=== PATIENT | female | born 1950 | race Caucasian/White ===

== ENCOUNTER 2018-09-14 15:51 | Observation (INO) | payer MEDICARE, BC, SELFPAY ==
[2018-09-14] VITALS (21 sets, daily range): BP systolic 108–158; BP diastolic 55–105; PULSE 60–122; RESP 9–26; TEMP 36.4–37.1; O2SAT 93–100; BMI 19.4
--- NOTE | 2018-09-14 | DI.RAD.S_ITS ---
PROCEDURE: XR HIP W PEL IF DONE LT 2V INDICATIONS: CLOSED REDUCTION TECHNIQUE: 3 AP view images of the hip were acquired. COMPARISON: [facility], CR, XR HIP W PEL IF DONE LT 2V, 09/14/2018, 15:58. FINDINGS: Intraoperative fluoroscopy documents the reduction of the previously noted left total hip arthroplasty dislocation, with the left femoral head hardware component now appearing well seated within the left acetabular hardware component. IMPRESSION: Intraoperative fluoroscopy documents the reduction of the previously noted left total hip arthroplasty dislocation, with the left femoral head hardware component now appearing well seated within the left acetabular hardware component. Please see procedural note for further details. Dictated by: Zafar Menendez M.D. on 09/14/2018 at 19:47 Approved by: Zafar Menendez M.D. on 09/14/2018 at 19:49
--- NOTE | 2018-09-14 15:53 | ED.LOWEXIN ---
HPI - Extremity Injury (Lower) General Chief Complaint: Extremity Injury, Lower Stated Complaint: Hip dislocation Time Seen by Provider: 09/14/18 15:53 Source: patient and EMS Mode of arrival: EMS Limitations: no limitations History of Present Illness HPI Narrative: A 68-year-old female with known bilateral total hip arthroplasty done greater than 20 years ago. His here for evaluation of presumed left hip dislocation. Patient states that it occurred this morning. She was trying to get out of her car when she twisted wrong. She states she has dislocated the hip in the past. Patient is from [facility]. There was a small attempt to reduce the hip at that time but was unsuccessful. Prior to arrival patient has received 100 mcg of fentanyl, Versed, 2 mg Dilaudid, 1 mg Ativan. Patient has been using a fentanyl patch for the past 40 years for lower back pain. Related Data Allergies Allergy/AdvReac Type Severity Reaction Status Date / Time No Known Drug Allergies Allergy Verified 09/14/18 16:21 Review of Systems Constitutional Denies fever(s) Musculoskeletal Denies myalgias, Reports deformity (Left hip), Reports arthralgias (Left hip), Reports limited range of motion (Left hip), Reports numbness (The outside of left leg) and Reports radiating pain into limb (Left lower leg) Integumentary/Breasts Denies lesions and Denies rash Neurologic Reports numbness (The outside of left leg) Hematologic/Lymphatic Denies easy bleeding and Denies easy bruising PFSH Medical History Chronic low back pain (Acute) Surgical History History of bilateral total hip arthroplasty (Acute) Social History Smoking Status: Never smoker Exam Initial Vital Signs Initial Vital Signs: Vital Signs Temperature 98.3 F 09/14/18 16:03 Pulse Rate 95 H 09/14/18 16:03 Respiratory Rate 20 09/14/18 16:03 Blood Pressure 146/89 H 09/14/18 16:03 Pulse Oximetry 97 09/14/18 16:03 Const General: cooperative, well developed, well groomed and No acute distress Orientation: alert, awake and oriented x3 HENMT Head: normal to inspection and normocephalic Resp Effort & Inspection: normal respiratory effort Auscultation: clear to auscultation bilaterally Cardio Rate: regular rate Rhythm: regular rhythm GI Inspection: non-distended Palpation: soft Skin Lesions: no lesions Rashes: no rashes Neuro Other: Sensation intact to light touch left lower extremity Extrem General: capillary refill normal Other: Limited range of motion left hip secondary to pain. Deformity of left hip Psych Appearance: grossly normal and well kempt Procedures Orthopedic Joint Reduction Joint #1: Time Out Performed: Yes Side: left Joint Reduction Location: hip Analgesia: procedural sedation Technique used: direct manipulation Post-reduction neuro exam: no change Post-reduction vascular: no change Post Reduction X-Ray Obtained: No Post Reduction X-Ray Results: not reduced Splint Applied: No Patient Tolerated Procedure: Well Procedural Sedation Patient Age: Patient is 5yrs or older Indication: fracture/dislocation reduction ASA Class: II Mallampati Airway Classification: Class I Time of Last PO Intake: 14:00 Preparation: compliance monitor applied, pulse oximeter, capnometry used and supplemental O2 applied IV Etomidate dose (mg): 20 ED Sedation Level: Moderate (Concious) Patient Tolerated Procedure: Well and No complications Complications: none Course Orders Ordered: ED Orders 09/14/18 15:54 XR hip w pel if done LT 2V Stat Discontinued Medications Etomidate (Amidate) 10 mg IV NOW ONE Stop: 09/14/18 17:28 Etomidate (Amidate) 10 mg IV NOW ONE Stop: 09/14/18 16:11 Last Admin: 09/14/18 16:30 Dose: 10 mg Hydromorphone HCl (Dilaudid) 1 mg IV NOW ONE Stop: 09/14/18 17:01 Last Admin: 09/14/18 17:10 Dose: 1 mg Famotidine (Pepcid) 20 mg in 50 mls @ 200 mls/hr IV NOW ONE Stop: 09/14/18 17:14 Last Admin: 09/14/18 17:10 Dose: 200 mls/hr Metoclopramide HCl (Reglan) 10 mg IV NOW ONE Stop: 09/14/18 17:01 Last Admin: 09/14/18 17:10 Dose: 10 mg Vital Signs - 8 hr 09/14/18 16:03 09/14/18 16:15 09/14/18 16:25 Temperature 98.3 F Pulse Rate 98 H 96 H 96 H Pulse Rate [Left Dorsalis Pedis] 95 H Respiratory Rate 20 17 16 Blood Pressure 146/89 H Blood Pressure [Right Arm] 136/76 136/64 Pulse Oximetry 97 97 97 09/14/18 16:30 09/14/18 16:35 09/14/18 16:40 Temperature Pulse Rate 122 H 100 H 99 H Pulse Rate [Left Dorsalis Pedis] Respiratory Rate 26 H 23 24 Blood Pressure Blood Pressure [Right Arm] 136/76 133/105 H Pulse Oximetry 96 93 95 09/14/18 16:45 09/14/18 16:50 Temperature Pulse Rate 90 89 Pulse Rate [Left Dorsalis Pedis] Respiratory Rate 19 19 Blood Pressure Blood Pressure [Right Arm] 158/57 H 142/87 H Pulse Oximetry 95 93 MDM - Extremity Injury (Lower) Imaging Data Left hip x-ray: My impression: Dislocation of left hip superior No fractures Radiologist's impression: PROCEDURE: XR HIP W PEL IF DONE LT 2V INDICATIONS: Probable dislocation TECHNIQUE: 2 views of the hip were acquired. COMPARISON: None. FINDINGS: Suboptimal exam due to imaging artifact. There are bilateral total hip arthroplasties. There is dislocation of the left total hip arthroplasty with the left femoral head arthroplasty component located anterosuperior to the left acetabular arthroplasty component. IMPRESSION: Dislocation of the left total hip arthroplasty with the left femoral head component located superior and anterior to the left acetabular component. Dictated by: Zafar Menendez MD. on 09/14/2018 at 16:51 Approved by: Zafar Menendez M.D. on 09/14/2018 at 16:52 [facility] Narrative Medical decision making narrative: No fractures noted on the x-ray. After obtaining consent patient was sedated with 10 mg of etomidate. Unable to reduce hip. A 2nd attempt was made with another 10 mg of etomidate again unsuccessful reduction. Patient tolerated the sedation well. I discussed the case with Dr. Lehman with Orthopedics who will take the patient to the operating room for closed reduction. Informed patient that we were unable to reduce the hip here in the emergency department and that she would will be sent to the operating room. Patient expressed understanding and agreement. Discharge Plan Departure Patient Disposition: Admitted as Observation Clinical Impression: Closed dislocation of left hip Discharge Date/Time: 09/14/18 17:33 Admit Date/Time: 09/14/18 17:09 Admit Provider: Carl Lehman
[2018-09-14] MEDS: ETOMIDATE 2 MG/ML VIAL 10 MG IV ×2 (16:25→16:30)
[2018-09-14] MEDS: METOCLOPRAMIDE 10 MG/2 ML INJ IV (17:10)
[2018-09-14] MEDS: FAMOTIDINE 20 MG/50 ML PIGGYBACK 200 MG IV (17:10)
[2018-09-14] MEDS: HYDROMORPHONE 1 MG INJ IV (17:10)
--- NOTE | 2018-09-14 17:45 | PM.CN ---
History of Present Illness Date Patient Seen: 09/14/18 Time Patient Seen: 17:45 Chief complaint: Hip dislocation Reason for consult: Left total hip replacement dislocation Requesting provider: Conner Sharpe Narrative: Ms. Mooney is a 68 yo F with acute onset of pain after bending and twisting her left hip. She had hx of KRUNAL more than 10 years ago. She says she had hx of dislocation and spontanenous reduction many years ago. She does not have recent hx of dislocation. She is unable to walk after the injury earlier today. She was transferred to ED. Attempted reduction was no successful by ED physician under sedation. Orthopedic service was consulted. [facility] Medical History Chronic low back pain (Acute) Surgical History History of bilateral total hip arthroplasty (Acute) Social History household members: family Smoking Status: Never smoker Meds Allergies Allergy/AdvReac Type Severity Reaction Status Date / Time No Known Drug Allergies Allergy Verified 09/14/18 16:21 Review of Systems Review of Systems All systems reviewed & are unremarkable except as noted in HPI and below Exam Vital Signs (past 8 hours): - 09/14/18 16:03 09/14/18 16:15 09/14/18 16:25 Temperature 98.3 F Pulse Rate 98 H 96 H 96 H Pulse Rate [Left Dorsalis Pedis] 95 H Respiratory Rate 20 17 16 Blood Pressure 146/89 H Blood Pressure [Right Arm] 136/76 136/64 Pulse Oximetry 97 97 97 09/14/18 16:30 09/14/18 16:35 09/14/18 16:40 Temperature Pulse Rate 122 H 100 H 99 H Pulse Rate [Left Dorsalis Pedis] Respiratory Rate 26 H 23 24 Blood Pressure Blood Pressure [Right Arm] 136/76 133/105 H Pulse Oximetry 96 93 95 09/14/18 16:45 09/14/18 16:50 09/14/18 17:43 Temperature Pulse Rate 90 89 84 Pulse Rate [Left Dorsalis Pedis] Respiratory Rate 19 19 21 Blood Pressure Blood Pressure [Right Arm] 158/57 H 142/87 H Pulse Oximetry 95 93 Oxygen Delivery Method Nasal Cannula Oxygen Flow Rate 2 Extrem Other: Skin Intact, left hp shortened and internally rotated. Well perfused and neurovascularly intact Assessment & Plan Plan: Assessment/Plan Narrative: Left total hip arthoplasty dislocation. Unable to be reduced in the ED under sedation by the emergency physician. Risks and benefits of the procedure was discussed. Patient is aware in case the hip is not able to be relocated by closed mean, she will be admitted and she will be referred to our hip specialist to manage her care. She is consented for close reduction under anesthesia.
[2018-09-14] MEDS: LACTATED RINGERS 1,000 ML 42 ML IV (17:48)
--- NOTE | 2018-09-14 17:56 | PM.OP.1 ---
Operative Date/Time/Diagnoses Date of procedure: 09/14/18 Time of procedure: 17:59 Pre-op diagnosis: 1. left total hip arthroplasty dislocation Post-op diagnosis: same Procedure & Clinicians Procedure: Left hip dislocation reduction under anesthesia Same procedure as scheduled: Yes Indications: Ms. Mooney is a 68 yo F with episode of acute onset pain and inablity to walk when she twisted and flexed her left hip. She was transferred to ED. Imaging showed a KRUNAL dislocation. Attempted reduction was done by ED physician. It was not successful. Orthopedic service was consulted and patient is taken to the OR for close reduction under anesthesia after informed consent was obtained. Surgeon: Carl Lehman Click Yes if Unassisted: Yes Anesthesia Type: General Operative Notes Blood products transfused: none Procedure in detail: Patient was identified in the preoperative area. Informed consent was obtained and placed in the chart. The affected leg was marked. Patient was taken to the operative room. General anesthesia was given to the patient patient was transferred to the operating table under sedation. Patient's affected hip was flexed internally rotated and was then put in traction. While in traction the hip was slowly extended external rotated. A clunk was felt during this maneuver. X-ray was used to confirm the hip was reduced in the desired position. Patient's left hip dislocation was reduced without difficulty. Patient tolerated the procedure well I was placed into abduction pillow. Patient was then transferred to recovery room in stable condition. Complications: none Condition: stable Plan for aftercare: Admit for over night observation. [place] She will be discharge in am.
--- NOTE | 2018-09-14 18:01 | P.OP_ITS ---
Operative Date/Time/Diagnoses Date of procedure: 09/14/18 Time of procedure: 17:59 Pre-op diagnosis: 1. left total hip arthroplasty dislocation Post-op diagnosis: same Procedure & Clinicians Procedure: Left hip dislocation reduction under anesthesia Same procedure as scheduled: Yes Indications: Ms. Mooney is a 68 yo F with episode of acute onset pain and inablity to walk when she twisted and flexed her left hip. She was transferred to ED. Imaging showed a KRUNAL dislocation. Attempted reduction was done by ED physician. It was not successful. Orthopedic service was consulted and patient is taken to the OR for close reduction under anesthesia after informed consent was obtained. Surgeon: Carl Lehman Click Yes if Unassisted: Yes Anesthesia Type: General Operative Notes Blood products transfused: none Procedure in detail: Patient was identified in the preoperative area. Informed consent was obtained and placed in the chart. The affected leg was marked. Patient was taken to the operative room. General anesthesia was given to the patient patient was transferred to the operating table under sedation. Patient' s affected hip was flexed internally rotated and was then put in traction. While in traction the hip was slowly extended external rotated. A clunk was felt during this maneuver. X-ray was used to confirm the hip was reduced in the desired position. Patient's left hip dislocation was reduced without difficulty. Patient tolerated the procedure well I was placed into abduction pillow. Patient was then transferred to recovery room in stable condition. Complications: none Condition: stable Plan for aftercare: Admit for over night observation. Patient lives alone in her house [place] [address]. She will be discharge in am.
--- NOTE | 2018-09-14 18:06 | SUR.OPER ---
Supine on padded OR bed, head on pillow, arms across chest legs uncrossed, safety belt at thigh,
[2018-09-14] MEDS: LACTATED RINGERS 1,000 ML 125 ML IV (20:16)
[2018-09-14] MEDS: ACETAMINOPHEN 325 MG TABLET 650 MG PO (20:53)
[2018-09-14] MEDS: HYDROCODONE/ACET 5/325 TABLET 1 TAB PO (21:23)
[2018-09-14] MEDS: HYDROMORPHONE 2 MG INJ IV (22:47)
[2018-09-15] MEDS: hydrOXYzine pamoate 25 MG CAPSULE PO ×2 (00:15→20:03)
[2018-09-15] MEDS: HYDROMORPHONE 2 MG INJ IV ×2 (00:19→04:28)
[2018-09-15] MEDS: HYDROCODONE/ACET 5/325 TABLET 1 TAB PO ×4 (02:12→20:02)
[2018-09-15 03:20] VITALS: BP 119/66; PULSE 82; RESP 15; TEMP 37; O2SAT 98
[2018-09-15] MEDS: SODIUM CHLORIDE 0.9% 1,000 ML 1000 ML IV (03:49)
--- NOTE | 2018-09-15 05:29 | PC.NURSE ---
Addendum entered by Aisha Chan R.N. 09/15/18 05:31: q 2 days and the one she is wearing is . She states she has been in pain all shift and is concerned she may go into opiate withdrawal. She has been given 1 [place] po q 4 x 2, Dilaudid 0.2 mg IVP x 2 and Visteril 25 mg po with no improvement. LS clear, S1, S2, voiding well and drinking water and decaf coffee. Denies nausea. Current pain is 8/10. Original Note: Pt is A and O x 4, VSS. Pt states she has been on opiates for 40 years for chronic back pain. She states she applies a 100 mcg Fentanyl
--- NOTE | 2018-09-15 07:42 | P.PN_ITS ---
Subjective Date Patient Seen: 09/15/18 Time Patient Seen: 07:42 Interval history: POD #1 status post Left hip dislocation reduction under anesthesia by Dr. Lehman on 09/14/18. Patient is lying in bed in no acute distress. She reports that her pain is manageable at this time. Patient has been using 100mcg fentanyl patch for 40 years for lower back pain. She reports switching out her patch every 2 days; her patch was last changed 4 days ago. She reports that she would like to have a new fentanyl patch to avoid opiate withdrawal and low back pain. She reports that she [place] alone in [place] however she has friends and family that could come by to assist her upon discharge. Patient has not seen PT. Patient denies any SOB, chest pain, fever, nausea, vomiting or chills. Exam Vital Signs (past 8 hours): - 09/14/18 23:45 09/15/18 03:20 Temperature 97.5 F L 98.6 F Pulse Rate 60 82 Respiratory Rate 15 15 Blood Pressure 119/66 119/66 Pulse Oximetry 96 98 Oxygen Delivery Method Room Air Oxygen Flow Rate 2 Narrative Exam Narrative: Patient is lying in bed in no acute distress. AOx3. Abduction pillow noted between LE. Radial and dorsalis pedis pulses 2+ and symmetric bilaterally. Sensation to light touch intact in LE bilaterally. Adequate muscle strength in dorsiflexion, plantarflexion and [employer] bilaterally. Fentanyl patch noted on R LE. Calfs are soft, non tender and compressible bilaterally. Assessment & Plan Post-op Postoperative Procedures Operation Date: 09/14/18 17:35 Actual Procedures Side Surgeon p Closed Reduction Dislocated Hip Carl Lehman MD Postoperative day: 1 Postoperative status: doing well Postoperative plan: routine post-op care Postoperative plan narrative: Start mobilizing, ambulating and sitting in chair with PT. 100mcg Fentanyl patch ordered for chronic lower back pain. Likely to be discharged home today once cleared by PT. Quality VTE Deep Vein Thrombosis/Pulmonary Embolism Present on Admission: No
[2018-09-15 07:49] VITALS: BP 121/55; PULSE 56; RESP 14; TEMP 36.6; O2SAT 97
--- NOTE | 2018-09-15 08:48 | PT.IIE ---
Addendum entered and electronically signed by Michelle Chaudhry PT 09/15/18 15:34: I certify I directly supervised and guided this session. Edwin Chaudhry DPT Original Note: Surgery Performed Operation Date: 09/14/18 17:35 Actual Procedures p Closed Reduction Dislocated Hip - Carl Lehman MD Surgical History (Last Reviewed 09/14/18 @ 17:48 by Carl Lehman MD) History of bilateral total hip arthroplasty (Acute) Medical History (Last Reviewed 09/14/18 @ 17:48 by Carl Lehman MD) Chronic low back pain (Acute) Physical Therapy Inpatient Evaluation/Re-Eval M1 PT/OT-IP Prior Functional Status Start: 09/15/18 10:27 Freq: NEEDED Status: Active Protocol: Document 09/15/18 08:48 (Rec: 09/15/18 11:37 [email or web address]) Medical Review Prior Functional Status Medical History Reviewed Yes Communication No deficits noted Mobility and Gait Previously independent with all mobilities using no AD. Prior Functional Level (Other details) No falls reported. Social History Household Members none Living Arrangements House Number of Floors (Floors) One Floor Number of Stairs To Enter/Railing? 2 stairs, L rail ascending Home Environment Standard Height Toilet Walk in Shower Home Equipment Hand Held Shower Additional Social History Comment Pt's brother avaliable to assist at d/c. She typically cares for several animals on a large property independently. M2 PT-IP Current Condition Start: 09/15/18 10:27 Freq: NEEDED Status: Active Protocol: Document 09/15/18 08:48 (Rec: 09/15/18 11:37 [email or web address]) Physical Therapy Current Condition Current Condition Evaluation Date 09/15/18 Treatment Diagnosis L Hip dislocation c closed reduction; difficulty walking Onset Date 09/14/18 Precautions Other Precautions No formal precautions per physician orders. PT advised pt to avoid extreme ranges of flexion, adduction and internal rotation (gave pt posterior hip precaution handouts). M3 PT-IP Subjective Start: 09/15/18 10:27 Freq: NEEDED Status: Active Protocol: Document 09/15/18 08:48 (Rec: 09/15/18 11:37 [email or web address]) Subjective Physical Therapy Visit Type Type Initial Evaluation Visit Start Time 08:48 Visit Stop Time 09:28 Total Visit Minutes 40 Number of YOUTUBER Visits 0 Physical Therapy Visit Comments Patient Comments Pt agreeable to mobilize with PT. Patient Goals Pt plans to return home upon d /c independently. Therapy Pain Assessment Pain When Pain Assessed During Mobility Pain Present Pain Present Pain Reported Location Left Hip Scale Used 2/10 at rest. 3/10 after mobility M4 PT-IP Mobility and Gait Start: 09/15/18 10:27 Freq: NEEDED Status: Active Protocol: Document 09/15/18 08:48 (Rec: 09/15/18 11:37 [email or web address]) PT-Bed Mobility Assessment Supine to Sit Supine to Sit Independent Sit to Supine Sit to Supine Independent Scooting Scooting to Edge of Bed Independent PT-Transfer Assessment Sit to and From Stand Sit to and from Stand Contact Guard Assistance Minimal Assistance Maximum Assistance 1 Person Assistance Use of Upper Extremities Equipment Transfer Assistive Device None Gait Belt Front Wheeled Walker Transfers Transfer Destination Bed Transfer Technique Pt ambulated to/from bed Transfer Ability Level of Assist Standby Assistance Comments Mobility Comments Resting BP 133/66 HR 59. Pt completes sit > stand with fww SBA. Stand > sit is SBA and no AD. Gait Assessment Gait Gait Assistance Required: Contact Guard Assist Distance (Feet) 200 Able to Maintain Weight Bearing Status Yes During Gait Assistive Devices Assistive Device None Gait Belt Front Wheeled Walker Orthotic/Prosthetic Devices or Brace: No Gait Deviations General Gait Pattern Narrow Based Gait Wide Based Gait Factors Limiting Gait Function Factors Limiting Gait Function Decreased Activity Tolerance Decreased Strength Incoordination Limited Range of Motion Pain Poor Balance Poor Safety Awareness Comments Gait Comments Pt ambulated 10 ft in room with fww SBA. Additional 190 ft completed to/from stairs with no AD and CGA for balance /steadying. Pt demonstrates variability in step width and several minor LOB that she is able to recover with CGA. Increased sway/LOB noted when asked to turn her head to scan environment with forward ambulation. Stair Climbing Assessment Evaluation Level of Assist On Stairs Contact Guard Assistance Devices Stair Climbing Assistive Devices None Left Railing Technique/Endurance Stair Climbing Direction Ascend and Descend Stair Climbing Technique Step Over Step Number of Steps Climbed 3 Query Text: Stair Climbing Set # Repetitions (reps) 1 Comments Stair Climbing Comments Pt up/down 3 steps with L rail ascending, CGA and no LOB. Instructed to lead up stairs with RLE and lead down stairs with LLE; She demonstrated this with min cues. PT-Balance Assessment Sitting Balance and Reactions Static Sitting Balance Ability Good Dynamic Sitting Balance Ability Good Standing Balance and Reactions Static Standing Balance Ability Good Dynamic Standing Balance Ability Fair Device Used no AD Functional Assessments Functional Tests Dynamic Gait Index Other Functional Tests Performed Comment: DGI items #6, #3, #5 (over obstacle, horizontal head turns, pivot turn) increase pt sway/unsteadiness most significantly M5 PT-IP Objective Assessments Start: 09/15/18 10:27 Freq: NEEDED Status: Active Protocol: Document 09/15/18 08:48 (Rec: 09/15/18 11:37 [email or web address]) Orientation Orientation/Cognition Level of Alertness Alert Orientation Name Age Birthday Month Date Year Day of Week Place Situation Language Function Ability No Deficits Noted Safety Awareness Decreased Safety Awareness Memory Description No Deficits Noted Gross Range of Motion Lower Extremity ROM Assessment Left Impaired Impairments LLE not tested. PT advised against extreme ranges of motion. Pt notes being hypermobile and demonstrates with hypermobile thumbs bilaterally. Strength Comments Strength Comments BLE 4/5 grossly M6 PT-IP Treatment Start: 09/15/18 10:27 Freq: NEEDED Status: Active Protocol: Document 09/15/18 08:48 (Rec: 09/15/18 11:37 [email or web address]) Physical Therapy Treatment Education Education Provided Precautions Safety Other Treatments Other Treatment Performed Pt declined performing, requesting to rest. Demonstrated standing hip hike at counter for balance as well as hip strengthening. M7 PT-IP Assessment and Plan Start: 09/15/18 10:27 Freq: NEEDED Status: Active Protocol: Document 09/15/18 08:48 (Rec: 09/15/18 11:37 [email or web address]) PT Summary Assessment and Plan Potential Rehabilitation Potential Good Status of Condition at Evaluation Stable Summary Impairments Pain ROM Strength Balance Bed Mobility Transfers Gait Activity Tolerance Progress Towards Goals Progressing Toward Goals Assessment Summary Pt s/p L hip dislocation closed reduction with difficulty walking and impaired balance. She ambulated 200 ft total today CGA, primarily with no AD as well as completed up/down 3 steps with L rail CGA. She however demonstrates high risk for falls scoring 18/24 on DGI and several minor LOB during ambulation requiring CGA to recover. Recommending d/c to home with 24/7 assist and f/u HH or OP/PT pending pt status at d/c. Goals Bed Mobility Goal Independent Transfer Goal Independent Gait Goal Independent Gait Distance 300 Other Goals STG: Ambulate 200 ft with no AD SBA. LTG: Ambulate 600 ft no AD, independent. Frequency of Treatment Frequency Of Treatment Twice a Day Treatment Plan Physical Therapy Treatment Plan Bed Mobility Training Transfer Training Gait Training Therapeutic Exercise Balance Retraining Discharge Planning Hot or Cold Pack Neuromuscular Re-ed Coordination Retraining Manual Therapy Other Recommendations and Next Treatment Dynamic balance. Progress Focus ambulation, assess safety with spc. Complete hip hiking for hip strength and balance. Recommendations To Nursing Amount of Assist Needed 1 Person Assist Discharge Recommendations PT Discharge Recommendations Home with 27/05 Assist Home Health Outpatient PT Other Discharge Recommendations Home with / assist and OP PT vs. Home with / assist and HH
[2018-09-15] MEDS: ACETAMINOPHEN 325 MG TABLET 650 MG PO ×3 (10:09→20:01)
[2018-09-15 10:21] VITALS: BP 121/60; PULSE 66; RESP 16; TEMP 36.7; O2SAT 97
--- NOTE | 2018-09-15 11:20 | CM.DANOTE ---
Discharge Planning/Care Management DCP: assessment: Case received and met with pt. Introduced self and role. Pt is a 68 emiliana old female who admitted to care of orthopedic team. Dr. Lehman took pt to surgery last evening for a closed reduction of hip after a dislocation. Pt is s/p KRUNAL of this hip many years ago. PT and OT will see pt today. Payer: Medicare and [employer]. Admission staus, in review: FADY Rangel Pt expects to go home at d/c at this point. Her brother Elmer Dye and his have a home on [address] and in [place]. Elmer would be transporting her.... P: will follow as treatment proceeds to see if home will be doable. CM Discharge Assessment Start: 09/15/18 10:37 Freq: Status: Active Protocol: Document 09/15/18 10:40 ITV (Rec: 09/15/18 10:41 [id number]) Discharge Planning Assessment Advance Directives? No History Provided By Patient Medical Record Has Patient been admitted in last 30 No days? Prior Living Arrangements House Comment [facility]. Independent with ADL's Yes Is patient alert and oriented? Yes Whiteboard Updated in Patient Room with Yes name and ext. 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 No History Provided By Patient Medical Record Has Patient been admitted in last 30 No days? [facility] [place] Household Members family Independent with ADL's Yes Is patient alert and oriented? Yes Whiteboard Updated in Patient Room with Yes name and ext. 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
--- NOTE | 2018-09-15 14:08 | PT.IPTN ---
Addendum entered and electronically signed by Michelle Chaudhry, PT 09/15/18 15:35: I certify I directly supervised and guided this session. R Jazmyn Chaudhry DPT Original Note: Surgery Performed Operation Date: 09/14/18 17:35 Actual Procedures p Closed Reduction Dislocated Hip - Carl Lehman MD Physical Therapy Treatment Note M2 PT-IP Current Condition Start: 09/15/18 10:27 Freq: NEEDED Status: Active Protocol: Document 09/15/18 08:48 (Rec: 09/15/18 11:37 [email or web address]) Physical Therapy Current Condition Current Condition Evaluation Date 09/15/18 Treatment Diagnosis L Hip dislocation c closed reduction; difficulty walking Onset Date 09/14/18 Precautions Other Precautions No formal precautions per physician orders. PT advised pt to avoid extreme ranges of flexion, adduction and internal rotation (gave pt posterior hip precaution handouts). 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 Therapy Pain Assessment Pain When Pain Assessed During Mobility Pain Present Pain Present Pain Reported Location Left Hip Intensity 3 Scale Used Numeric (1 - 10) Pain Management Techniques Modification of Treatment Re-positioning Timing of Activity with Medications M4 PT-IP Mobility and Gait Start: 09/15/18 10:27 Freq: NEEDED Status: Active Protocol: Document 09/15/18 14:08 (Rec: 09/15/18 15:23 [id number]) PT-Bed Mobility Assessment Supine to Sit Supine to Sit Independent Sit to Supine Sit to Supine Independent Scooting Scooting to Edge of Bed Independent PT-Transfer Assessment Sit to and From Stand Sit to and from Stand Independent Equipment Transfer Assistive Device Gait Belt Orthotic/Prosthetic Devices or Brace: No Transfers Transfer Destination Bed Transfer Technique Ambulating to/from bed Gait Assessment Gait Gait Assistance Required: Standby Assistance Distance (Feet) 200 Able to Maintain Weight Bearing Status Yes During Gait Assistive Devices Assistive Device None Gait Belt Orthotic/Prosthetic Devices or Brace: No Gait Deviations General Gait Pattern Within Normal Limits Factors Limiting Gait Function Factors Limiting Gait Function Decreased Strength Limited Range of Motion Pain Poor Balance Poor Safety Awareness Comments Gait Comments Pt ambulated 200 ft to/from stairs with no AD SBA. Gait quality and steadiness is greatly improved since this morning; pt demonstrates no sway or LOB. Step width and stride length are symmetrical. Stair Climbing Assessment Evaluation Level of Assist On Stairs Standby Assistance Devices Stair Climbing Assistive Devices Left Railing Technique/Endurance Stair Climbing Direction Ascend and Descend Stair Climbing Technique Step to Step Number of Steps Climbed 3 Query Text: Stair Climbing Set # Repetitions (reps) 1 Comments Stair Climbing Comments Pt performs up/down 3 steps SBA using L rail without LOB, requiring no cues for foot placement. PT-Balance Assessment Sitting Balance and Reactions Static Sitting Balance Ability Good Dynamic Sitting Balance Ability Good Standing Balance and Reactions Static Standing Balance Ability Good Dynamic Standing Balance Ability Good Device Used none M5 PT-IP Objective Assessments Start: 09/15/18 10:27 Freq: NEEDED Status: Active Protocol: Document 09/15/18 08:48 (Rec: 09/15/18 11:37 [email or web address]) Orientation Orientation/Cognition Level of Alertness Alert Orientation Name Age Birthday Month Date Year Day of Week Place Situation Language Function Ability No Deficits Noted Safety Awareness Decreased Safety Awareness Memory Description No Deficits Noted Gross Range of Motion Lower Extremity ROM Assessment Left Impaired Impairments LLE not tested. PT advised against extreme ranges of motion. Pt notes being hypermobile and demonstrates with hypermobile thumbs bilaterally. Strength Comments Strength Comments BLE 4/5 grossly M6 PT-IP Treatment Start: 09/15/18 10:27 Freq: NEEDED Status: Active Protocol: Document 09/15/18 14:08 (Rec: 09/15/18 15:23 [email or web address]) Physical Therapy Treatment Education Education Provided Precautions Safety Other Treatments Other Treatment Performed Pt education to avoid extreme ranges of hip position. Educated to use a walking stick when outdoors for safety and stability over uneven terrain. Pt understood. HEP educated and performed: Standing hip hikes for L glute med strengthening and balance challenge, performed at countertop with finger touch for balance. Supine bridges X5, 5 sec holds. M7 PT-IP Assessment and Plan Start: 09/15/18 10:27 Freq: NEEDED Status: Active Protocol: Document 09/15/18 14:08 (Rec: 09/15/18 15:23 [id number]) PT Summary Assessment and Plan Potential Rehabilitation Potential Good Status of Condition at Evaluation Stable Summary Impairments Pain ROM Strength Balance Bed Mobility Transfers Gait Activity Tolerance Progress Towards Goals Progressing Toward Goals Assessment Summary Pt s/p L hip dislocation and closed reduction with difficulty walking. She was able to walk 200 ft with no AD , SBA as well as up/down 3 steps SBA with L rail. She demonstrated improved gait mechanics and steadiness with all ambulation and stairs. Recommend d/c to home and f/u OP PT to continue functional strengthening and balance training. Goals Bed Mobility Goal Independent Transfer Goal Independent Gait Goal Independent Gait Distance 300 Other Goals STG: Ambulate 200 ft with no AD SBA. LTG: Ambulate 600 ft no AD, independent. Frequency of Treatment Frequency Of Treatment Twice a Day Treatment Plan Physical Therapy Treatment Plan Bed Mobility Training Transfer Training Gait Training Therapeutic Exercise Balance Retraining Discharge Planning Hot or Cold Pack Neuromuscular Re-ed Coordination Retraining Manual Therapy Other Recommendations and Next Treatment Progress ambulation. Dynamic Focus balance Recommendations To Nursing Amount of Assist Needed Standby Assistance Discharge Recommendations PT Discharge Recommendations Home with Assistance Outpatient PT
[2018-09-15 16:11] VITALS: BP 124/54; PULSE 56; RESP 16; TEMP 36.6; O2SAT 96
--- NOTE | 2018-09-15 18:54 | PC.NURSE ---
At 1545 Zackary is awake, oriented x 3. Denies significant pain, reports good relief from pain med given previous shift. VS are stable, RA oxygen mid 90's. Denies numbness to extremities, moving self in bed, requesting SCD's off. Requesting to let me sleep, expressed that she had not gotten much sleep since dislocating hip. Instructed her to call nurse if needs any assistance, call button at her side. Fall precautions emphasized.
[2018-09-15] MEDS: DULOXETINE 30 MG CAPSULE 60 MG PO (20:49)
[2018-09-15] MEDS: LIOTHYRONINE 5 MCG TABLET 10 MCG PO (20:50)
[2018-09-15 22:14] VITALS: BP 147/64; PULSE 51; RESP 18; TEMP 36.7; O2SAT 96
--- NOTE | 2018-09-15 22:42 | PC.NURSE ---
At first assessment found patient awake, lethargic, Ox3. VS stable. Said I don't want to go home today-there [place] get [place] the ferry or anything like that. Appears somewhat anxious about situation. Pt asked if she could then sleep, and slept from about 1600 -1900. She woke up and picked at her food, refusing most of her meal, saying she did not have an appetite. When I tried to give her words of encouragement and talk to her about whether she had help at home after DC, she told me she lived alone. She also said I just wish I was not alive sometimes. Started to cry. Told me she is very worried about her animals on [place] but clarified that her son is taking care of them tonight. She also asked why can't I have my medications? When looking further into situation found that her home medications had not been ordered for her. I then called Dr Lehman to notify, new orders given to resume normal home meds. I also told Dr Lehman that patient reported taking Xanax periodically at home for anxiety. When I asked Dr Lehman if that was an option for her her, he said no he did not want her to have that tonight. All med orders entered, except for Levothyroxine as patient told me she took 125 mcg but home medication list stated she takes 12.5 mcg. I will pass on to night RN that med needs to be clarified by patient's pharmacy in AM and then re-ordered. I talked with patient for 20 minutes about her depression, encouraging her to find counseling after she is DC'd. Message left on care mgmt voicemail tonight so they are aware of this situation as patient appears very depressed.
[2018-09-16 00:45] VITALS: BP 146/77; PULSE 49; RESP 16; TEMP 36.3; O2SAT 97
[2018-09-16 05:45] VITALS: BP 169/74; PULSE 54; RESP 16; TEMP 36.5; O2SAT 97
[2018-09-16] MEDS: LIOTHYRONINE 25 MCG TABLET PO (05:48)
[2018-09-16] MEDS: HYDROCODONE/ACET 5/325 TABLET 1 TAB PO ×2 (06:51→13:52)
[2018-09-16] MEDS: LITHIUM 150 MG CAPSULE PO (08:16)
[2018-09-16 08:20] VITALS: BP 143/65; PULSE 61; RESP 24; TEMP 36.4; O2SAT 97
[2018-09-16 10:10] VITALS: O2SAT 97
--- NOTE | 2018-09-16 10:41 | PM.DS.1 ---
History of Present Illness Date Patient Seen: 09/16/18 Time Patient Seen: 10:41 Chief complaint: Hip dislocation Narrative: Patient is a 68yo female with episode of acute onset pain and inability to walk when she twisted and flexed her left hip.She was transferred to ED. Imaging showed a KRUNAL dislocation. Attempted reduction was done by ED physician. It was not successful. Orthopedic service was consulted and patient is taken to the OR for close reduction under anesthesia after informed consent was obtained. Discharge Providers Date of admission: 09/14/18 17:09 Primary care physician: Jose F Ortiz MD Consults: 09/14/18 19:02 Consult to Physical Therapy Evaluate & Treat Comment: Physician Instructions: Evaluate and Treat 09/15/18 10:07 Consult to Occupational Therapy Evaluate & Treat Comment: Physician Instructions: Evaluate and treat Discharge provider: Lynne Self PA-C Discharge Date: 09/16/18 Summary Discharge Diagnosis: left hip arthroplasty dislocation Hospital Course: Patient was transferred to the OR where she had a closed reduction under anesthesia for left hip dislocation by Dr. Lehman. She recovered well as transfer to the floor for observation and pain control. Postop day 2 patient was ambulating well. Pain was under control. Passed physical therapy. She will be discharged home to [place]. Posterior hip precautions. Follow up in office in 2 weeks. Status at Discharge Cognitive/behavioral status at discharge: A&O x3 Functional status at discharge: uses cane/walker Overall status at discharge: patient is progressing back to baseline Time Spent with Patient Less than 30 minutes Exam Vital Signs (past 8 hours): - 09/16/18 05:45 09/16/18 08:20 09/16/18 10:10 Temperature 97.7 F 97.5 F L Pulse Rate 54 L 61 Respiratory Rate 16 24 Blood Pressure 169/74 H 143/65 H Pulse Oximetry 97 97 97 Oxygen Delivery Method Nasal Cannula Oxygen Flow Rate 2 Narrative Exam Narrative: Patient in bed. Alert orient x3. Appears comfortable. Lying on left side. 5/5 left ankle strength. Neurovascular status intact bilaterally. Bilateral calf soft and nontender. Discharge Plan Discharge Plan Discharge Problem: Closed dislocation of left hip Patient Disposition: Home Discharge comment: Posterior hip precautions. Follow up with PCP for home prescription medications. Discharge Med Rec/Prescriptions Prescriptions: New hydroxyzine pamoate 25 mg Capsule 25 mg PO Q6H PRN (Reason: muscle spasm) Qty: 30 RF: 0 hydrocodone-acetaminophen 5-325 mg Tablet 1 tab PO Q4HR PRN (Reason: Pain, Mild (1-3)) Qty: 30 RF: 0 Continue liothyronine 25 mcg tablet 25 mcg PO DAILY RF: 0 lithium carbonate 150 mg capsule 150 mg PO DAILY RF: 0 levothyroxine 25 mcg tablet 12.5 mcg PO DAILY RF: 0 duloxetine 60 mg capsule,delayed release(DR/EC) See Label Instructions .ROUTE .COMPLEX RF: 0 liothyronine 5 mcg tablet 5 mcg PO QPM RF: 0 dextroamphetamine 10 mg capsule, extended release 30 mg PO DAILY RF: 0 fentanyl 100 mcg/hr patch 72 hour 100 mcg Topical Q48H RF: 0 Follow up/Referrals: Carl Lehman MD [Physician] - (Follow up in office in 2 weeks. Call with any issues or concerns.) Provider Discharge Instructions Diet: Diet as Tolerated Activity: Activity as tolerated. Posterior hip precautions. Cold/Heat Therapy: Apply ice as needed for swelling and inflammation. Skin/Wound/Dressing Care Report to your healthcare provider any signs of infection, such as:: chills, fever and increased pain Visit Report/Discharge Packet Instructions: DI for Hip Dislocation -- Adult Discharge Data Primary Care Provider: Jose F Ortiz Attending Provider: Carl Lehman Admit Date/Time: 09/14/18 17:09 Quality VTE Deep Vein Thrombosis/Pulmonary Embolism Present on Admission: No
[2018-09-16 12:20] VITALS: BP 100/67; PULSE 61; O2SAT 97
--- NOTE | 2018-09-16 12:35 | CM.DPC ---
DCP: continued: Spoke with LYNNE Lara. Pt is d/c'd today and she discussed details of this with the ortho PA. Her ride will be here at about 1400. No further needs re the d/c are noted.
--- NOTE | 2018-09-16 12:57 | PT.IPTN ---
Surgery Performed Operation Date: 09/14/18 17:35 Actual Procedures p Closed Reduction Dislocated Hip - Carl Lehman MD Physical Therapy Treatment Note Physical Therapy Visit Type Type Administrative Note Notes Pt was been cleared yesterday by PT to go home when medically ready, recommend HHPT f/u. Acute PT will sign off.
--- NOTE | 2018-09-16 13:46 | OT.IP.EVAL ---
Surgery Performed Operation Date: 09/14/18 17:35 Actual Procedures p Closed Reduction Dislocated Hip - Carl Lehman MD Past Medical History (Last Reviewed 09/14/18 @ 17:48 by Carl Lehman MD) Chronic low back pain (Acute) Surgical History (Last Reviewed 09/14/18 @ 17:48 by Carl Lehman MD) History of bilateral total hip arthroplasty (Acute) Occupational Therapy Inpatient Evaluation/Re-Eval M1 PT/OT-IP Prior Functional Status Start: 09/15/18 10:27 Freq: NEEDED Status: Active Protocol: Document 09/16/18 13:46 PJM (Rec: 09/16/18 14:02 PJM [id number]) Medical Review Prior Functional Status Medical History Reviewed Yes Diet/Fluid Consistency Regular Communication WNL Mobility and Gait Previously independent with all mobilities using no AD. Activities of Daily Living and IADL's Pt independent with all self care and cares for horse, donkey and dog. Pt lives in one room cabin on large property owned by her brother. Prior Functional Level (Other details) No falls reported. Social History Household Members family Living Arrangements House Number of Floors (Floors) One Floor Number of Stairs To Enter/Railing? 2 stairs to enter Home Environment Standard Height Toilet Walk in Shower Home Equipment Hand Held Shower Employment Status Retired Additional Social History Comment Pt had B KRUNAL 20+ yrs ago, and had previous L hip dislocation ~12 yrs ago by her report. M2 OT-IP Current Condition Start: 09/16/18 13:47 Freq: Status: Active Protocol: Document 09/16/18 13:46 PJM (Rec: 09/16/18 14:02 PJM [id number]) Occupational Therapy Current Condition Current Condition Evaluation Date 09/16/18 Treatment Diagnosis assess self care after L hip dislocation w/reduction under anesthesia 09/14 Diagnosis Onset Date 09/14/18 Post Operative Precautions Other Precautions No formal precautions per physician orders. PT/OT advised pt to avoid extreme ranges of flexion, adduction and internal rotation (gave pt posterior hip precaution handouts). Weight Bearing Status Weight Bearing Status Weight Bear as Tolerated M3 OT- IP Subjective and Pain Start: 09/16/18 13:47 Freq: Status: Active Protocol: Document 09/16/18 13:46 PJM (Rec: 09/16/18 14:02 PJM [id number]) OT- Subjective Occupational Therapy Visit Type Type Initial Evaluation Visit Start Time 13:25 Visit Stop Time 13:46 Total Visit Minutes 21 Notes Pt intermittently tearful throughout session as she is worried about her animals at home. Occupational Therapy Visit Comments Patient Comments My brother is not an animal person. I am worried about my dog. Patient/Caregiver Goals to go home and check on animals, to avoid another dislocation OT Pain Assessment Pain When Pain Assessed After Treatment Pain Present Pain Present Pain Reported Location Left Hip Intensity 2 Scale Used Numeric (1 - 10) Description Aching Acute M4 OT- IP ADL's Start: 09/16/18 13:47 Freq: Status: Active Protocol: Document 09/16/18 13:46 PJM (Rec: 09/16/18 14:02 [facility] [id number]) OT KNK-Ppcb-Vhbwixn General Evaluation Self-Feeding Ability Independent OT ADL-Grooming General Evaluation Grooming Ability Independent Comments OT Grooming Comments standing at sink without a device OT ADL-Oral Care General Eval Oral Care Ability Independent Devices Oral Care Devices Toothbrush Comments Oral Care Comments standing at sink without a device OT ADL-Dressing General Eval Upper Body Dressing Ability Independent Lower Body Dressing Ability Independent Areas Needing Assistance Underpants/Brief Pants/Shorts Socks Comments OT Dressing Comments Provided education re: lower body dressing sequence and avoiding adduction/internal rotation when donning pants and socks. Pt needs occasional cues to apply these precautions during functional tasks. No shoes here. OT ADL-Toileting General Evaluation Toileting Ability Independent OT ADL-Bathing Comments OT Bathing Comments Pt declines to shower here. Plans to nail polish brush machine feeder shower stall at home. M5 OT- IP IADL's Start: 09/16/18 13:47 Freq: Status: Active Protocol: Document 09/16/18 13:46 PJM (Rec: 09/16/18 14:02 PJ [id number]) OT-Instrumental Activities of Daily Living Deficits IADL Deficits Identified No Deficits Driving Driving Comments Pt appears to be at baseline level of function in IADLS. She lives in one room cabin. M6 OT- IP Functional Cognition Start: 09/16/18 13:47 Freq: Status: Active Protocol: Document 09/16/18 13:46 PJM (Rec: 09/16/18 14:02 PJ [id number]) Cognitive Factors Limiting Selfcare Function Cognitive Ability Level of Alertness Alert Patient Orientation Name Age Birthday Month Date Year Day of Week Place Situation Ability to Follow Commands Able to Follow One Step Commands Memory Description No Deficits Noted Cognitive Comments Cognitive Assessment Comments Pt internally distracted and tearful this session re: concerns about animal care at home. OT- Vision and Hearing OT- Hearing Assessment OT- Hearing Assessment WFL M7 OT- IP Mobility and Balance Start: 09/16/18 13:47 Freq: Status: Active Protocol: Document 09/16/18 13:46 PJM (Rec: 09/16/18 14:02 [facility] [id number]) OT- Bed Mobility Assessment Rolling Type of Rolling Roll to Right Level of Assistance Independent Supine to Sit Supine to Sit Assist Independent Scooting Scooting to Edge of Bed Independent OT-Transfer Assessment Sit to and From Stand Sit to and from Stand Independent Transfers Transfer Ability Independent Technique Transfer Destination Chair Toilet Transfer Technique Stand Step Pivot Devices Transfer Assistive Devices None OT- Gait Assessment Gait Gait Assistance Required: Independent Distance (Feet) 20 Assistive Devices Assistive Device None Comments Gait Ability Comments Pt up ad leonard without a device in room. Pt has been cleared for indep ambulation by P.T. with recommendation to use a walking stick outside. OT- Balance Assessment Sitting Balance and Reactions Static Sitting Balance Ability Good Dynamic Sitting Balance Ability Good Standing Balance and Reactions Static Standing Balance Ability Good Dynamic Standing Balance Ability Good M8 OT- IP Objective Assessments Start: 09/16/18 13:47 Freq: Status: Active Protocol: Document 09/16/18 13:46 PJM (Rec: 09/16/18 14:02 [facility] [id number]) OT Gross Range of Motion Upper Extremity Range of Motion Assessment Within Functional Limits OT Strength Upper Extremity Strength Assessment Within Functional Limits OT- Coordination Assessment Comments Coordination Comments BUE WNL OT-Muscle Tone Assessment Muscle Tone WNL Yes OT Sensation Assessment Comments Summary Comments Pt denies sensory deficits in either UE. Edema Edema Absent M9 OT- IP Assessment and Plan Start: 09/16/18 13:47 Freq: Status: Active Protocol: Document 09/16/18 13:46 PJM (Rec: 09/16/18 14:02 [facility] [id number]) OT Summary Assessment and Plan Potential Rehabilitation Potential Good Analytic Complexity at Evaluation Low Summary Progress Towards Goals Safe For Discharge Assessment Summary Low complexity OT assessment completed with emphasis on self care skills within precautions to avoid repeat L hip dislocation. Pt independent with self care tasks after education re: movements to avoid and sequencing of lower body dressing. Pt internally distracted and intermittently tearful this session re: concerns about her animals care at home. Pt safe for d/c from OT standpoint. Frequency of Treatment Frequency Of Treatment Discharge Treatment Plan Other Treatment Recommendations and Next No further OT services needed. Treatment Focus Discharge Recommendations OT Discharge Recommendations Home
--- NOTE | 2018-09-16 14:51 | PC.NURSE ---
LEATHER CUTTER note: looked for patients boots. I told Bety about them and she said she would look into it. Family may be calling later.
== END 2018-09-16 14:15 | disposition home or self-care (01) ==
LOC: ED 17:01 → AC 17:10
PROVIDERS: Admitting Provider Orthopaedic Surgery Orthopaedic Surgery of the Spine; Emergency Provider Emergency Medicine; Family Provider Family Medicine; PCP Family Medicine; Visit Provider Orthopaedic Surgery Orthopaedic Surgery of the Spine
PROC: (CPT 27266; principal; 2018-09-14 17:35)
DX: T84.021A Dislocation of internal left hip prosthesis, initial encounter (principal); Z87.891 Personal history of nicotine dependence; E03.9 Hypothyroidism, unspecified; K58.9 Irritable bowel syndrome, unspecified
CPT/HCPCS: 27266; 27265; 73502; 76000; 94760; 94770; 96365; 96375; 97110; 97116; 97161; 97165; 97530; 99152; 99283; 99285; 99291; G0378; J0330; J1170; J2250; J2704; J2765; J3010

== ENCOUNTER → 2018-11-26 07:52 | Outpatient (REF) | payer MEDICARE, BC, SELFPAY ==
[2018-09-14 19:14] VITALS: BMI 19.4
[2018-11-26 08:29] LABS: Hematocrit 37.7 % (36-46); Hemoglobin 12.5 g/dL (12.0-16.0); Mean Corpuscular HGB Conc 33.2 % (30-36); Mean Corpuscular Hemoglobin 29.2 PG (26-34); Platelet Count 201 X10^3/uL (150-400); Red Blood Cell Count 4.28 X10^6/uL (4.0-5.2); Red Cell Distribution Width 13.2 % (11.6-14.8); White Blood Cell Count 6.8 X10^3/uL (4.5-11.0)
[2018-11-26 08:52] LABS: BUN Creatinine Ratio 24.3 (6-22); Blood Urea Nitrogen 17 mg/dL (7-17); Carbon Dioxide 29 mmol/L (22-32); Chloride 101 mmol/L (98-107); Estimated Glomerular Filt Rate > 60.0 mL/min (>60); Glucose 83 mg/dL (80-110); HEMOLYSIS < 15 (0-50); Potassium 3.9 mmol/L (3.4-5.1); Sodium 139 mmol/L (137-145)
[2018-11-26 09:20] LABS: Thyroid Stimulating Hormone 0.67 uIU/mL (0.47-4.68)
== END ==
LOC: LAB 07:52
PROVIDERS: Family Provider Family Medicine; PCP Family Medicine; Visit Provider Hospitalist
DX: S73.004A Unspecified dislocation of right hip, initial encounter (principal)
CPT/HCPCS: 36415; 80048; 84443; 85027

== ENCOUNTER → 2018-11-28 07:45 | Outpatient (REF) | payer MEDICARE, BC, SELFPAY ==
[2018-09-14 19:14] VITALS: BMI 19.4
[2018-11-28 08:47] LABS: Lithium < 0.2 mmol/L (0.6-1.2)
== END ==
LOC: LAB 07:45
PROVIDERS: Family Provider Family Medicine; PCP Family Medicine; Visit Provider Hospitalist
DX: S73.005A Unspecified dislocation of left hip, initial encounter (principal); E03.9 Hypothyroidism, unspecified
CPT/HCPCS: 36415; 80178

== ENCOUNTER → 2018-12-08 07:11 | Outpatient (REF) | payer MEDICARE, BC, SELFPAY ==
[2018-09-14 19:14] VITALS: BMI 19.4
[2018-12-08 07:52] LABS: Lithium < 0.2 mmol/L (0.6-1.2)
== END ==
LOC: LAB 07:11
PROVIDERS: Family Provider Family Medicine; PCP Family Medicine; Visit Provider Hospitalist
DX: F32.9 Major depressive disorder, single episode, unspecified (principal)
CPT/HCPCS: 36415; 80178

== ENCOUNTER 2018-12-18 21:25 | Observation (INO) | payer MEDICARE, SELFPAY ==
[2018-09-14 19:14] VITALS: BMI 19.4
[2018-12-18] VITALS (18 sets, daily range): BP systolic 90–177; BP diastolic 58–127; PULSE 75–90; RESP 14–19; TEMP 36.9–37.1; O2SAT 77–97
--- NOTE | 2018-12-18 | DI.RAD.S_ITS ---
PROCEDURE: XR PELVIS 1-2V INDICATIONS: POST REDUCTION LEFT HIP TECHNIQUE: 2 view(s) of the pelvis acquired. COMPARISON: None. FINDINGS: Bones: Bilateral hip prostheses noted. Femoral component of the left hip prosthesis is dislocated superiorly. No suspicious bony lesions. Soft tissues: Visualized bowel gas pattern is normal. No suspicious soft tissue calcifications. IMPRESSION: Left hip arthroplasty dislocation. Dictated by: Halina Haley MD, PhD on 12/19/2018 at 8:30 Approved by: Halina Haley MD, PhD on 12/19/2018 at 8:44
--- NOTE | 2018-12-18 21:28 | DI.RAD.S_ITS ---
PROCEDURE: XR HIP W PEL IF DONE LT 2V INDICATIONS: heard pop, shortened, left hip pain TECHNIQUE: 2 views of the hip were acquired. COMPARISON: [facility], CR, XR HIP W PEL IF DONE LT 2V, 09/14/2018, 19:08. [facility], CR, XR HIP W PEL IF DONE LT 2V, 09/14/2018, 15:58. FINDINGS: Bones: Bilateral total hip arthroplasty hardware noted. There is an acute dislocation of the left hip with the femoral head component located anterior, superior, and lateral to the expected position within the acetabular component. No other acute fractures or dislocations are identified. There are moderate degenerative changes of the lumbar spine. Soft tissues: Calcified pelvic fluid was noted. IMPRESSION: Acute dislocation of the left total hip arthroplasty hardware, with the femoral head component located anterior, superior, and lateral to the expected position within the acetabular component. Dictated by: Zafar Menendez M.D. on 12/18/2018 at 22:56 Approved by: Zafar Menendez M.D. on 12/18/2018 at 23:00
--- NOTE | 2018-12-18 21:42 | ED.LOWEXIN ---
HPI - Extremity Injury (Lower) General Chief Complaint: Extremity Injury, Lower Stated Complaint: [place] hip pop out Time Seen by Provider: 12/18/18 21:28 Source: patient and EMS Mode of arrival: EMS Limitations: no limitations History of Present Illness HPI Narrative: patient is a 60-year-old female who has persistent recurrent left hip dislocations. He was dislocated in September 2018 and again in 2018. This evening he rolled over in bed and felt a pop out. As she is scheduled for a revision on 12/22/[address] Sandoval. She had a replaced number of years ago. She previously had to go the OR with Dr. David in September 2018 when it was dislocated at that time. Related Data Home Medications Medication Instructions Recorded Confirmed dextroamphetamine 30 mg PO DAILY 09/15/18 12/17/18 duloxetine See Rx Instructions .ROUTE .COMPLEX 09/15/18 12/17/18 fentanyl 100 mcg TOPICAL Q48H 09/15/18 12/17/18 levothyroxine 12.5 mcg PO DAILY 09/15/18 12/17/18 liothyronine 10 mcg PO QPM 09/15/18 12/17/18 liothyronine 25 mcg PO DAILY 09/15/18 12/17/18 alprazolam 1 mg PO Q6H PRN 12/17/18 12/17/18 lithium carbonate 150 mg PO DAILY 12/17/18 12/17/18 quetiapine 1 - 2 tab PO BEDTIME 12/17/18 12/17/18 Previous Rx's Medication Instructions Recorded hydrocodone-acetaminophen 1 tab PO Q4HR PRN #30 tab 09/16/18 hydroxyzine pamoate 25 mg PO Q6H PRN #30 cap 09/16/18 Allergies Allergy/AdvReac Type Severity Reaction Status Date / Time No Known Drug Allergies Allergy Verified 12/18/18 21:31 Review of Systems Review of Systems ROS Unobtainable: All systems reviewed & are unremarkable except as noted in HPI and below Constitutional Denies chills, Denies fever(s), Denies lethargy and Denies weakness Cardiovascular Denies dyspnea and Denies dyspnea on exertion Respiratory Denies cough, Denies dyspnea, Denies dyspnea on exertion and Denies wheezing Gastrointestinal Gastrointestinal: Denies abdominal pain, Denies change in bowel habits, Denies diarrhea, Denies nausea and Denies vomiting Musculoskeletal Reports as per HPI Integumentary/Breasts Denies pruritus, Denies erythema, Denies rash and Denies wounds Neurologic Denies weakness Allergic/Immunologic Denies wheezing PFSH Medical History Arthritis (Acute) Bipolar 1 disorder (Acute) Chronic low back pain (Acute) DDD (degenerative disc disease) (Acute) DJD (degenerative joint disease) (Acute) Depression (Acute) H/O: hysterectomy (Acute) Hypothyroidism (Acute) IBS (irritable bowel syndrome) (Acute) Insomnia (Acute) 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 analgesic (Acute) Low back pain (Acute) Major depressive disorder, single episode, severe without psychotic features (Acute) Recurrent dislocation, left hip (Acute) Rib fracture (Acute) Surgical History History of bilateral total hip arthroplasty (Acute) Hx of parotidectomy (Acute) Social History household members: other Smoking Status: Never smoker alcohol intake: current Social History household members: other Smoking Status: Never smoker alcohol intake: current Exam Initial Vital Signs Initial Vital Signs: Vital Signs Temperature 98.5 F 12/18/18 21:31 Pulse Rate 85 12/18/18 21:31 Respiratory Rate 14 12/18/18 21:31 Blood Pressure 117/70 12/18/18 21:31 Pulse Oximetry 97 12/18/18 21:31 GENERAL: Alert thin elderly female appears in pain HEENT: Head atraumatic,EOMI, pupils reactive, CARDIOVASCULAR: Regular rate and rhythm without murmurs, rubs or gallops. RESPIRATORY: Breath sounds equal bilaterally, no wheezes rales or rhonchi. ABDOMEN: Soft, nontender. Normoactive bowel sounds all 4 quadrants. No guarding or rebound.s EXTREMITIES: Normal range of motion, no clubbing or edema. Neurovascularly intact. pelvis is stable left leg is shortened and externally rotated. peripheral pulses intact NEUROLOGICAL: Alert and oriented x4. SKIN: Warm, dry, no laceration, no petechiae, no rashes or lesions. Procedures Orthopedic Joint Reduction Joint #1: Time Out Performed: Yes Side: left Joint Reduction Location: hip Analgesia: procedural sedation Technique used: traction/counter-traction and direct manipulation Post-reduction neuro exam: intact and no change Post-reduction vascular: intact Post Reduction X-Ray Obtained: Yes Post Reduction X-Ray Results: not reduced Patient Tolerated Procedure: No complications Additional Comments: multiple attempts and was unsuccessful Procedural Sedation Patient Age: Patient is 5yrs or older Indication: fracture/dislocation reduction Presedation Evaluation: left hip dislocation ASA Class: I Mallampati Airway Classification: Class I IV Propofol dose (mg): 50 IV Etomidate dose (mg): 15 Intraservice time (min): 20 ED Sedation Level: Moderate (Concious) Patient Tolerated Procedure: Well Complications: none Course Orders Ordered: ED Orders 12/18/18 21:28 XR hip w pel if done LT 2V Stat 12/19/18 01:30 Consult to Dietitian, Adult Routine Sodium Chloride (Normal Saline 0.9%) 1,000 mls @ 125 mls/hr IV CONT RAFI Last Admin: 12/19/18 01:15 Dose: 125 mls/hr HYDROMORPHONE WEB WEAVER (6MG/30ML) (Dilaudid Rehab Director Occupational Therapist (6mg/30ml)) 6 mg in 30 mls @ 0.5 mls/hr IV Q8HR RAFI Last Admin: 12/19/18 01:15 Dose: 0 mg/hr, 0 mls/hr Naloxone HCl (Narcan) 0.2 mg IV Q2MIN PRN; Protocol PRN Reason: Opiate Reversal Ondansetron HCl (Zofran) 4 mg IV Q4H PRN PRN Reason: Nausea And Vomiting Discontinued Medications Etomidate (Amidate) 15 mg 0.3 mg/kg (15 mg) IV NOW ONE Stop: 12/18/18 22:05 Last Admin: 12/18/18 22:34 Dose: 15 mg Hydromorphone HCl (Dilaudid) 1 mg IV NOW ONE Stop: 12/18/18 23:37 Last Admin: 12/18/18 23:18 Dose: 1 mg Hydromorphone HCl (Dilaudid) 1 mg IV NOW ONE Stop: 12/19/18 00:22 Last Admin: 12/19/18 00:10 Dose: 1 mg Propofol (Diprivan) 10 mg IV NOW ONE Stop: 12/18/18 23:08 Last Admin: 12/18/18 22:46 Dose: 10 mg Vital Signs - 8 hr 12/18/18 21:31 12/18/18 22:00 12/18/18 22:13 Temperature 98.5 F 98.8 F Pulse Rate 85 82 76 Respiratory Rate 14 16 16 Blood Pressure 117/70 Blood Pressure [Left Arm] 119/63 Blood Pressure [Right Arm] 119/63 Pulse Oximetry 97 93 92 12/18/18 22:15 12/18/18 22:30 12/18/18 22:45 Temperature Pulse Rate 79 90 80 Respiratory Rate 16 19 19 Blood Pressure Blood Pressure [Left Arm] Blood Pressure [Right Arm] 139/70 126/58 L 90/70 Pulse Oximetry 92 96 96 12/18/18 23:00 12/18/18 23:15 12/18/18 23:30 Temperature Pulse Rate 79 75 75 Respiratory Rate 16 17 15 Blood Pressure Blood Pressure [Left Arm] Blood Pressure [Right Arm] 141/78 H 139/96 H 112/93 H Pulse Oximetry 96 95 97 12/18/18 23:45 12/19/18 00:00 12/19/18 00:45 Temperature 98.1 F Pulse Rate 77 71 78 Respiratory Rate 18 15 18 Blood Pressure 150/88 H Blood Pressure [Left Arm] Blood Pressure [Right Arm] 177/127 H 136/71 Pulse Oximetry 96 92 96 MDM - Extremity Injury (Lower) Imaging Data left hip XR: Radiologist's impression: PROCEDURE: XR HIP W PEL IF DONE LT 2V INDICATIONS: heard pop, shortened, left hip pain TECHNIQUE: 2 views of the hip were acquired. COMPARISON: [facility], CR, XR HIP W PEL IF DONE LT 2V, 09/14/2018, 19:08. [facility], CR, XR HIP W PEL IF DONE LT 2V, 09/14/2018, 15:58. FINDINGS: Bones: Bilateral total hip arthroplasty hardware noted. There is an acute dislocation of the left hip with the femoral head component located anterior, superior, and lateral to the expected position within the acetabular component. No other acute fractures or dislocations are identified. There are moderate degenerative changes of the lumbar spine. Soft tissues: Calcified pelvic fluid was noted. IMPRESSION: Acute dislocation of the left total hip arthroplasty hardware, with the femoral head component located anterior, superior, and lateral to the expected position within the acetabular component. Dictated by: Zafar Menendez M.D. on 12/18/2018 at 22:56 pelvis XR: Attestation: I personally reviewed and interpreted this imaging study as follows: My impression: persistent anterior dislocation MDM Narrative Medical decision making narrative: patient has required OR reduction many times. Scheduled for his hip revision on Saturday. I spoke with Dr. Anderson, a made her aware of multiple recurrent dislocations requiring OR reduction along with scheduled his revision in the next few days. Request that I try to reduce in place in knee immobilizer. I spoke with Ortho again after attempt at reduction x2. at this time she request patient be placed in observation for reduction in the morning. Patient continues to have intermittent pain and Dilaudid is minimally touching her. She will be placed on a Dilaudid WEB WEAVER Discharge Plan Departure Patient Disposition: Admitted as Observation Clinical Impression: Closed dislocation of left hip Qualifiers: Encounter type: initial encounter Qualified Code(s): S73.005A - Unspecified dislocation of left hip, initial encounter Discharge Date/Time: 12/19/18 00:40 Interventions: ED Discharge Assessment Last Done: 12/19/18 00:40 Admit Date/Time: 12/19/18 00:14 Admit Provider: Patricia Anderson
[2018-12-18] MEDS: ETOMIDATE 2 MG/ML VIAL 15 MG IV (22:34)
[2018-12-18] MEDS: PROPOFOL 200 MG/20 ML VIAL 10 MG IV (22:46)
[2018-12-18] MEDS: HYDROMORPHONE 1 MG INJ IV (23:18)
[2018-12-19] VITALS (16 sets, daily range): BP systolic 115–153; BP diastolic 45–88; PULSE 50–78; RESP 12–18; TEMP 36.2–36.8; O2SAT 92–100; BMI 18.3
[2018-12-19] MEDS: HYDROMORPHONE 1 MG INJ IV (00:10)
--- NOTE | 2018-12-19 00:46 | PC.NURSE ---
PT states rolled over in bed and left hip became dislocated, pt has appt on Saturday for hip repair with ortho to replace parts from previous 20 year old hip replacement. Pt has hx of multiple dislocations to left hip. Pt LLE is shortened and rotated.
[2018-12-19] MEDS: SODIUM CHLORIDE 0.9% 1,000 ML 125 ML IV ×2 (01:15→10:18)
[2018-12-19] MEDS: HYDROMORPHONE PCA (6MG/30ML) 6 MG/30 ML PCA.VIAL IV ×2 (01:15→09:10)
--- NOTE | 2018-12-19 06:03 | PC.NURSE ---
NOC Note Pt arrived at approx 0045, pain 8/10, LPN set up per orders, pt NPO on admit. At 0530 Pt attempted to use the bedpan with no results, bladder scan showed 999ml. Called Dr Anderson, received orders for Jimenez and to change pt to reg diet for breakfast and NPO at 10am. Pt put out 800cc clear yellow urine with jimenez placement at 0555. She stated that she is not getting much relief with the LPN, having used 3mg by 6am. 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
[2018-12-19] MEDS: OXYCODONE IR 5 MG TABLET PO (08:17)
--- NOTE | 2018-12-19 08:45 | PM.CN ---
History of Present Illness Date Patient Seen: 12/19/18 Time Patient Seen: 08:46 Chief complaint: [place] hip pop out Reason for consult: left hip dislocation-- KRUNAL Requesting provider: Pastora Jensen Narrative: The pt s a 68 yo F that presents with a recurrent L KRUNAL dislocation in an anterior-superior direction. She had an unsuccessful attempt at CR under sedation in the ER. Similarly she had a dislocation that require OR CR in September. She is schedule for revision KRUNAL 12/22/[address] Sandoval. She has been residing in a skilled nursing. SHe is unable to ambulate no with her dislocation and denies f/c/n/v. She states she was lying on her stomach yesterday and started to turn over onto her side when she felt the pop. 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 (Acute) Low back pain (Acute) Major depressive disorder, single episode, severe without psychotic features (Acute) Recurrent dislocation, left hip (Acute) Rib fracture (Acute) Surgical History History of bilateral total hip arthroplasty (Acute) Hx of parotidectomy (Acute) Social History household members: other Smoking Status: Never smoker alcohol intake: current Social History household members: other Smoking Status: Never smoker alcohol intake: current Meds Home Medications Medication Instructions Recorded Confirmed Type dextroamphetamine 30 mg PO DAILY 09/15/18 12/19/18 History duloxetine See Rx Instructions .ROUTE .COMPLEX 09/15/18 12/19/18 History fentanyl 100 mcg TOPICAL Q48H 09/15/18 12/19/18 History levothyroxine 12.5 mcg PO DAILY 09/15/18 12/19/18 History liothyronine 10 mcg PO QPM 09/15/18 12/19/18 History liothyronine 25 mcg PO DAILY 09/15/18 12/19/18 History hydrocodone-acetaminophen 1 tab PO Q4HR PRN #30 tab 09/16/18 12/19/18 Rx hydroxyzine pamoate 25 mg PO Q6H PRN #30 cap 09/16/18 12/19/18 Rx alprazolam 0.5 mg PO Q6H PRN 12/17/18 12/19/18 History lithium carbonate 150 mg PO DAILY 12/17/18 12/19/18 History quetiapine 1 - 2 tab PO BEDTIME 12/17/18 12/19/18 History aripiprazole 2 mg PO DAILY 12/19/18 12/19/18 History Allergies Allergy/AdvReac Type Severity Reaction Status Date / Time No Known Drug Allergies Allergy Verified 12/18/18 21:31 Review of Systems Review of Systems All systems reviewed & are unremarkable except as noted in HPI and below Exam Vital Signs (past 8 hours): - 12/19/18 05:13 Temperature 98.2 F Pulse Rate 66 Respiratory Rate 16 Blood Pressure 121/65 Pulse Oximetry 94 Oxygen Delivery Method Room Air Narrative Exam Narrative: Patient is alert and oriented female in no acute distress HEENT exam is normocephalic atraumatic Respiratory exam nonlabored on room air lungs clear to auscultation bilaterally Cardiovascular exam regular rate and rhythm Abdomen exam thin nontender Musculoskeletal exam: Bilateral upper extremities benign full range of motion nontender sensation to light touch Left lower extremity: Externally rotated left lower extremity sensation grossly intact to light touch. Demonstrates active dorsiflexion plantar flexion with all toes. Sensation grossly intact to light touch. Calf is soft. No erythema swelling or signs or symptoms of infection. Hip motion not tested due to pain Objective Imaging xr pelvis: My impression: anterior superior Left KRUNAL dislocation Labs Result Diagrams: 12/19/18 08:35 12/19/18 08:35 Assessment & Plan Assessment & Plan narrative: L KRUNAL dx: anterior/superior with unsuccessful CR in ER. Pt in indicated for CR under general anesthesia in OR. A successful CR will aid with pain relief, ambulation and tolieting before her revision surgery. If she is unable to be CR then she will remain on bedrest until revision next week with a hip surgeon. The patient is scheduled for CR this evening in the OR. NPO after 10aM except meds The risks benefits and alternatives to the procedure were discussed in detail and the patient has provided her informed consent. We discussed the risks for fracture, inability to reduce, persistent pain, recurrent dislocation and risks of general anesthesia. Time Spent With Patient Time with patient: less than 15 minutes
[2018-12-19 08:48] LABS: Hemoglobin A1C% w Est Avg Glu 5.4 % (4.0-6.0)
[2018-12-19 08:50] LABS: Add Manual Diff / Slide Review NO; Basophils Absolute Auto 0 /uL (0-100); Basophils Percent Auto 0.4 % (0-2); Eosinophils Absolute Auto 200 /uL (0-450); Eosinophils Percent Auto 2.7 % (2-4); Hematocrit 35.2 % (36-46); Hemoglobin 11.7 g/dL (12.0-16.0); Lymphocytes Absolute Auto 2200 /uL (1100-4500); Lymphocytes Percent Auto 34.6 % (25-40); Mean Corpuscular HGB Conc 33.3 % (30-36); Mean Corpuscular Hemoglobin 28.9 PG (26-34); Mean Corpuscular Volume 86.8 fL (80-100); Monocytes Absolute Auto 500 /uL (0-900); Monocytes Percent Auto 8.1 % (3-14); Neutrophils Absolute Auto 3500 /uL (1500-7000); Neutrophils Percent Auto 54.2 % (50-75); Platelet Count 198 X10^3/uL (150-400); Red Blood Cell Count 4.05 X10^6/uL (4.0-5.2); Red Cell Distribution Width 13.3 % (11.6-14.8); White Blood Cell Count 6.5 X10^3/uL (4.5-11.0)
[2018-12-19 08:53] LABS: Alanine Aminotransferase 48 IU/L (9-52); Albumin 3.7 g/dL (3.5-5.0); Albumin Globulin Ratio 1.5 (1.0-2.8); Alkaline Phosphatase 92 U/L (38-126); Aspartate Aminotransferase 41 IU/L (14-36); Bilirubin Total 0.5 mg/dL (0.2-1.3); Blood Urea Nitrogen 15 mg/dL (7-17); C-Reactive Protein Quant 1.5 mg/dL (<1.0); Calcium 8.8 mg/dL (8.4-10.2); Carbon Dioxide 27 mmol/L (22-32); Chloride 104 mmol/L (98-107); Estimated Glomerular Filt Rate > 60.0 mL/min (>60); Globulin 2.5 g/dL (1.7-4.1); Glucose 119 mg/dL (80-110); HEMOLYSIS < 15 (0-50); Potassium 4.7 mmol/L (3.4-5.1); Sodium 138 mmol/L (137-145); Total Protein 6.2 g/dL (6.3-8.2)
[2018-12-19 09:18] LABS: Erythrocyte Sedimentation Rate 35 MM/HR (0-20)
--- NOTE | 2018-12-19 11:06 | PM.PN.1 ---
Subjective Date Patient Seen: 12/19/18 Time Patient Seen: 11:07 Interval history: Hospital day 2 with diagnosis of dislocating left total hip arthroplasty. She was seen through the emergency room yesterday and found to have dislocated left total hip arthroplasty. Unable to do reduction in the ER. She is scheduled to have reduction done in OR today by Dr. Anderson. Dr. Sandoval was in to see the patient this morning. Patient is scheduled for left revision total hip arthroplasty on 12/22/2018. Dr. Sandoval requested preoperative CBC, CMP, A1c, ESR, CRP and EKG to be done while patient in hospital in preparation for her surgery on Saturday. Patient is on fentanyl patch 100 mcg which is due to be changed today. She has been using Dilaudid AIR SURVEILLANCE OPERATOR and has used 3 mg since admission. She was on oxycodone 5 mg at [facility]. Exam Vital Signs (past 8 hours): - 12/19/18 05:13 12/19/18 08:00 Temperature 98.2 F 97.9 F Pulse Rate 66 65 Respiratory Rate 16 18 Blood Pressure 121/65 128/74 Pulse Oximetry 94 92 Oxygen Delivery Method Room Air Narrative Exam Narrative: Alert, oriented no acute distress lying in bed. Legs. There is apparent shortening of the left leg compared to right. No calf pain or swelling. Pulses symmetrical. Increased pain with traction of left leg. Objective Labs Result Diagrams: 12/19/18 08:35 12/19/18 08:35 Labs: Laboratory Results - last 24 hr 12/19/18 12/19/18 12/19/18 08:35 08:35 08:35 WBC 6.5 RBC 4.05 Hgb 11.7 L Hct 35.2 L MCV 86.8 MCH 28.9 MCHC 33.3 RDW 13.3 Plt Count 198 Neut % (Auto) 54.2 Lymph % (Auto) 34.6 [place] % (Auto) 8.1 Eos % (Auto) 2.7 Baso % (Auto) 0.4 Neut # (Auto) 3500 Lymph # (Auto) 2200 [place] # (Auto) 500 Eos # (Auto) 200 Baso # (Auto) 0 ESR 35 H Sodium 138 Potassium 4.7 Chloride 104 Carbon Dioxide 27 BUN 15 Creatinine 0.60 Estimated GFR > 60.0 BUN/Creatinine Ratio 25.0 H Glucose 119 H Hemoglobin A1c 5.4 Calcium 8.8 Total Bilirubin 0.5 AST 41 H ALT 48 Alkaline Phosphatase 92 C-Reactive Protein 1.5 H Total Protein 6.2 L Albumin 3.7 Globulin 2.5 Albumin/Globulin Ratio 1.5 Assessment & Plan Assessment & Plan narrative: Plan: Patient will have above-noted labs and EKG done today. She is to be NPO after 1000 hr except she may take p.o. pain med. Wrote order for oxycodone 5 mg. Will change her fentanyl [address] Anderson will determine whether patient remains in the hospital for care until her revision surgery on 12/22/2018 or she may go back to [facility] for 2 days and then return on 12/22/2018 for surgery. Quality VTE Deep Vein Thrombosis/Pulmonary Embolism Present on Admission: No
--- NOTE | 2018-12-19 11:12 | P.PN_ITS ---
Subjective Date Patient Seen: 12/19/18 Time Patient Seen: 11:07 Interval history: Hospital day 2 with diagnosis of dislocating left total hip arthroplasty. She was seen through the emergency room yesterday and found to have dislocated left total hip arthroplasty. Unable to do reduction in the ER. She is scheduled to have reduction done in OR today by Dr. Anderson. Dr. Sandoval was in to see the patient this morning. Patient is scheduled for left revision total hip arthroplasty on 12/22/2018. Dr. Sandoval requested preoperative CBC, CMP, A1c, ESR, CRP and EKG to be done while patient in hospital in preparation for her surgery on Saturday. Patient is on fentanyl patch 100 mcg which is due to be changed today. She has been using Dilaudid BLASTING MINER and has used 3 mg since admission. She was on oxycodone 5 mg at [facility]. Exam Vital Signs (past 8 hours): - 12/19/18 05:13 12/19/18 08:00 Temperature 98.2 F 97.9 F Pulse Rate 66 65 Respiratory Rate 16 18 Blood Pressure 121/65 128/74 Pulse Oximetry 94 92 Oxygen Delivery Method Room Air Narrative Exam Narrative: Alert, oriented no acute distress lying in bed. Legs. There is apparent shortening of the left leg compared to right. No calf pain or swelling. Pulses symmetrical. Increased pain with traction of left leg. Objective Labs Result Diagrams: 12/19/18 08:35 12/19/18 08:35 Labs: Laboratory Results - last 24 hr 12/19/18 12/19/18 12/19/18 08:35 08:35 08:35 WBC 6.5 RBC 4.05 Hgb 11.7 L Hct 35.2 L MCV 86.8 MCH 28.9 MCHC 33.3 RDW 13.3 Plt Count 198 Neut % (Auto) 54.2 Lymph % (Auto) 34.6 [place] % (Auto) 8.1 Eos % (Auto) 2.7 Baso % (Auto) 0.4 Neut # (Auto) 3500 Lymph # (Auto) 2200 [place] # (Auto) 500 Eos # (Auto) 200 Baso # (Auto) 0 ESR 35 H Sodium 138 Potassium 4.7 Chloride 104 Carbon Dioxide 27 BUN 15 Creatinine 0.60 Estimated GFR > 60.0 BUN/Creatinine Ratio 25.0 H Glucose 119 H Hemoglobin A1c 5.4 Calcium 8.8 Total Bilirubin 0.5 AST 41 H ALT 48 Alkaline Phosphatase 92 C-Reactive Protein 1.5 H Total Protein 6.2 L Albumin 3.7 Globulin 2.5 Albumin/Globulin Ratio 1.5 Assessment & Plan Assessment & Plan narrative: Plan: Patient will have above-noted labs and EKG done today. She is to be NPO after 1000 hr except she may take p.o. pain med. Wrote order for oxycodone 5 mg. Will change her fentanyl [address] Anderson will determine whether patient remains in the hospital for care until her revision surgery on 12/22/2018 or she may go back to [facility] for 2 days and then return on 12/22/2018 for surgery. Quality VTE Deep Vein Thrombosis/Pulmonary Embolism Present on Admission: No
--- NOTE | 2018-12-19 15:24 | CM.DANOTE ---
Discharge Planning/Care Management DCP: assessment: case received, discussed in Team Rounds and met now with pt. Introduced self and role. Pt is a 68 year old female who admitted today to care of orthopedic team. PCP: Dr. Ortiz/[facility] Payer: Medicare and [facility] out of [facility]. OBS admissions status: confirmed by UR RN Cynthia but she says is also subject to review. Pt was already set up for a L KRUNAL revision this Saturday: 12/[address] Sandoval. She has dislocated the hip, failed ER attempt at reduction and will be taken to the OR later today by Dr. Nolan for closed reduction. Per discussion in Team Rounds with ortho [employer] pt will either stay here and have the surgery on Saturday as planned or she will d/c back to [facility] and then return again Saturday. He says Dr. Nolan will decide this. Pt confirms she is aware of all of this and is fine either way. She expects she will be admitted as an INPT when she actually has the revision and then is hopeful that she can return to [facility] under her Medicare snf benefit. Spoke with [facility] admissions: she is aware of this plan. They are keeping pt's bed. DCP team will be following and more should be known tomorrow. CM Discharge Assessment Start: 12/19/18 15:18 Freq: Status: Active Protocol: Document 12/19/18 15:18 ITV (Rec: 12/19/18 15:23 ITV [id number]) Discharge Planning Assessment History Provided By Patient Medical Record Prior Living Arrangements Skilled Nurse Facility Comment has been at [facility] under private pay since November due to hip complications. her home is on [address]. Household Members other Comment she is . Her spouse lives in [place] Facility Name Admitted From: [facility] Willing to Return to Facility? Yes Comment return to [facility] Whiteboard Updated in Patient Room with Yes name and ext. # of Mail Forwarding System Markup Clerk Review Status In Process Next Review Type Continued Stay Review
--- NOTE | 2018-12-19 17:04 | SUR.HOLD ---
Urine clear, yellow.
[2018-12-19] MEDS: LACTATED RINGERS 1,000 ML 42 ML IV ×2 (17:15→20:34)
--- NOTE | 2018-12-19 17:28 | PM.PREOP ---
Pre-operative Note Interval Note History & Physical reviewed/Exam performed by Physician: Yes Changes to H&P: No
--- NOTE | 2018-12-19 18:06 | P.OP_ITS ---
Operative Date/Time/Diagnoses Date of procedure: 12/19/18 Time of procedure: 18:04 Pre-op diagnosis: Left total hip arthroplasty dislocation, anterior ICD 10T84.021A Post-op diagnosis: same Procedure & Clinicians Procedure: Number closed reduction left total hip arthroplasty dislocation with general anesthesia CPT code 64616 Same procedure as scheduled: Yes Indications: The patient is a 68-year-old female with a history of left hip replacement instability. The patient comes in with a recurrent anterior left total hip dislocation. She had unsuccessful to attempts at closed reduction under conscious sedation in the ER by the ER staff. Patient was indicated for formal closed reduction with general anesthesia in the operating room. The risks benefits and alternatives to the procedure were discussed in detail with the patient and informed consent was signed. Risks include but were not limited to: Inability to reduce the hip, fracture, recurrent dislocation, complications from general anesthesia. Informed consent was signed. Surgeon: Patricia Anderson Click Yes if Unassisted: Yes Anesthesia Type: General Operative Notes Findings: Anterior severe dislocation left total hip arthroplasty Closure Type: not applicable Specimen(s): none sent Prosthetic devices, grafts, tissues, transplants, or devices: Splint to knee as a knee immobilizer Estimated Blood Loss (mL): 0 Blood products transfused: none Tourniquet time (min): 0 Procedure in detail: Patient was seen in the preoperative area her site of procedure was marked and informed consent confirmed. The patient Was taken back to the operating room by the anesthesia team. General anesthesia was administered on the cot and the patient was then transferred to the operative table. A formal time-out procedure was performed confirming the patient's side and site of surgery presence of informed consent. All were in agreement. This was a closed reduction procedure and no preoperative antibiotic was indicated. Once general anesthesia was established and the paralytic was administered the procedure began. Simple in-line traction was placed on the left lower extremity which had been external rotated consistent with an anterior dislocation. Gentle in-line traction was maintained for approximately 30 sec along with a counter pressure on the pelvis and then direct posterior pressure on the femoral head. No large clunk was felt but it was noted that the leg was gently rotated up into an anatomic position with the toes towards the ceiling and I was able to bring the hip up into flexion and internal and externally rotate the hip indicating successful reduction. The large C-arm was brought in and fluoroscopy examination to took place confirming concentric reduction of the femoral head into the acetabulum. The leg was taken through range of motion under fluoroscopy in internal and external rotation the hip stayed in. Additionally a frog- lateral was taken confirming reduction in the AP and lateral planes. This ended the procedure. Two small slabs of Ortho Glass were used as a make shift knee immobilizer to try to discourage the patient from risk positions. Patient was then woken from anesthesia and taken to the PACU in good condition. There no immediate complications from this procedure. Complications: none Condition: stable Disposition: PACU Plan for aftercare: Patient will be weightbear as tolerated. She will use the knee splint as a knee immobilizer and to discourage her from positions of instability. Avoid abduction external rotation or lying prone. Avoid hip extension which would put the patient at risk for anterior dislocation. Patient will have SCDs while she is in the hospital. Patient may be discharged back to her nursing facility. Patient does have a planned hospital admission on 12/22/2018 for total hip revision
--- NOTE | 2018-12-19 18:12 | SUR.OPER ---
Supine on padded OR bed, head on pillow, arms secured on padded arm boards at <90 degrees abduction, legs uncrossed, safety belt at thigh, tape over blanket over lower legs.
--- NOTE | 2018-12-19 18:45 | SUR.PHASEI ---
stable pacu stay.
[2018-12-19] MEDS: DULOXETINE 30 MG CAPSULE 60 MG PO (20:34)
[2018-12-19] MEDS: ACETAMINOPHEN 325 MG TABLET 650 MG PO (21:15)
[2018-12-20 00:38] VITALS: BP 131/66; PULSE 58; RESP 14; TEMP 36.6; O2SAT 97
[2018-12-20] MEDS: OXYCODONE IR 5 MG TABLET PO (01:43)
[2018-12-20] MEDS: ALPRAZolam 0.5 MG TABLET PO (01:44)
[2018-12-20 04:57] VITALS: BP 100/65; PULSE 56; RESP 15; TEMP 36.4; O2SAT 96
--- NOTE | 2018-12-20 08:03 | PM.DS.1 ---
History of Present Illness Date Patient Seen: 12/20/18 Time Patient Seen: 08:03 Chief complaint: [place] hip pop out Narrative: The history and physical examination are contained in the chart and previously completed note. Please refer to that note for this information. Discharge Providers Date of admission: 12/19/18 00:14 Primary care physician: Jose F Ortiz MD Consults: 12/19/18 01:30 Consult to Dietitian, Adult Routine Comment: Reason For Exam: IBS, POOR INTAKE 12/19/18 18:42 Consult to Discharge Planning Routine Comment: home to snf tomorrow Consult to Physical Therapy Evaluate & Treat Comment: Physician Instructions: Evaluate and Treat Discharge provider: Atilio Zaragoza MD Discharge Date: 12/20/18 Summary Discharge Diagnosis: 1. Dislocation of left prosthetic hip Hospital Course: The patient was admitted to the hospital and taken to the operating room where her left prosthetic hip dislocation was relocated after failure of an attempt in the emergency room. She was admitted overnight for observation. She is stable for discharge back to her senior care facility today. She is scheduled to have a revision of this total hip done on December 22. Status at Discharge Cognitive/behavioral status at discharge: Baseline Functional status at discharge: uses cane/walker Overall status at discharge: patient is progressing back to baseline Time Spent with Patient Less than 30 minutes Exam Vital Signs (past 8 hours): - 12/20/18 00:38 12/20/18 04:57 Temperature 97.8 F 97.5 F L Pulse Rate 58 L 56 L Respiratory Rate 14 15 Blood Pressure 131/66 100/65 Pulse Oximetry 97 96 Oxygen Delivery Method Nasal Cannula Oxygen Flow Rate 2 Narrative Exam Narrative: Leg length and rotation of the left hip appear to be appropriate. There is minimal discomfort on rotation of the hip. Light touch and motion are intact in the left lower extremity. Objective Labs Result Diagrams: 12/19/18 08:35 12/19/18 08:35 Labs: Laboratory Results - last 24 hr 12/19/18 12/19/18 12/19/18 08:35 08:35 08:35 WBC 6.5 RBC 4.05 Hgb 11.7 L Hct 35.2 L MCV 86.8 MCH 28.9 MCHC 33.3 RDW 13.3 Plt Count 198 Neut % (Auto) 54.2 Lymph % (Auto) 34.6 [place] % (Auto) 8.1 Eos % (Auto) 2.7 Baso % (Auto) 0.4 Neut # (Auto) 3500 Lymph # (Auto) 2200 [place] # (Auto) 500 Eos # (Auto) 200 Baso # (Auto) 0 ESR 35 H Sodium 138 Potassium 4.7 Chloride 104 Carbon Dioxide 27 BUN 15 Creatinine 0.60 Estimated GFR > 60.0 BUN/Creatinine Ratio 25.0 H Glucose 119 H Hemoglobin A1c 5.4 Calcium 8.8 Total Bilirubin 0.5 AST 41 H ALT 48 Alkaline Phosphatase 92 C-Reactive Protein 1.5 H Total Protein 6.2 L Albumin 3.7 Globulin 2.5 Albumin/Globulin Ratio 1.5 Discharge Plan Discharge Plan Patient Disposition: SNF Transfer to: [facility] Under care of provider: Gerri Sandoval Transportation: Wheelchair Discharge comment: Patient is to be returned on Saturday for revision total hip replacement. I certify the postop hospital senior care care is medically necessary on a continuing basis for any conditions for which he/ she received care during this hospitalization.: Yes The receiving facility has agreed to accept transfer and provide medical treatment.: Yes Discharge Med Rec/Prescriptions Prescriptions: Continued liothyronine 25 mcg tablet 25 mcg PO DAILY RF: 0 levothyroxine 25 mcg tablet 12.5 mcg PO DAILY RF: 0 duloxetine 60 mg capsule,delayed release(DR/EC) See Rx Instructions .ROUTE .COMPLEX RF: 0 liothyronine 5 mcg tablet 10 mcg PO QPM RF: 0 dextroamphetamine 10 mg capsule, extended release 30 mg PO DAILY RF: 0 fentanyl 100 mcg/hr patch 72 hour 100 mcg Topical Q48H RF: 0 hydroxyzine pamoate 25 mg Capsule 25 mg PO Q6H PRN (Reason: muscle spasm) Qty: 30 RF: 0 hydrocodone-acetaminophen 5-325 mg Tablet 1 tab PO Q4HR PRN (Reason: Pain, Mild (1-3)) Qty: 30 RF: 0 aripiprazole 2 mg tablet 2 mg PO DAILY RF: 0 quetiapine 25 mg Tablet 1 - 2 tab PO BEDTIME RF: 0 alprazolam 1 mg Tablet 0.5 mg PO Q6H PRN (Reason: Anxiety) RF: 0 lithium carbonate 150 mg Capsule 150 mg PO DAILY RF: 0 Follow up/Referrals: Atilio Zaragoza MD [Physician] - Jose F Ortiz MD [Primary Care Provider] - Discharge Health Status Multidrug resistant organism: No MDRO Precautions: [place] Provider Discharge Instructions Diet: Diet as Tolerated and Regular Liquid consistency: Normal/Thin Food texture: Regular Diet comment: The patient is to be NPO after midnight on December 21 2018. Activity: She may weight bear as tolerated. Positions of extreme flexion or extension of the hip are to be avoided. Neutral rotation of the hip is to be maintained. Cold/Heat Therapy: Ice to the left hip for 15 min every hour as needed for pain [facility] Reason for rehabilitation: Post-operative therapy Rehab type: Physical therapy Visit Report/Discharge Packet Instructions: DI for Hip Dislocation -- Adult Discharge Data Primary Care Provider: Jose F Ortiz Attending Provider: Patricia Anderson Admit Date/Time: 12/19/18 00:14 Quality VTE Deep Vein Thrombosis/Pulmonary Embolism Present on Admission: No
[2018-12-20] MEDS: LITHIUM 150 MG IR CAPSULE PO (08:28)
[2018-12-20] MEDS: LIOTHYRONINE 25 MCG TABLET PO (08:28)
[2018-12-20 08:30] VITALS: BP 114/61; PULSE 68; RESP 18; TEMP 36.6; O2SAT 97
--- NOTE | 2018-12-20 09:30 | PT.IIE ---
Surgery Performed Operation Date: 12/19/18 17:30 Actual Procedures p Closed Reduction Dislocated Hip(Left) - Patricia Anderson MD Surgical History (Last Reviewed 12/19/18 @ 17:25 by Patricia Anderson MD) History of bilateral total hip arthroplasty (Acute) Hx of parotidectomy (Acute) Medical History (Last Reviewed 12/19/18 @ 17:25 by Patricia Anderson MD) Arthritis (Acute) Bipolar 1 disorder (Acute) Chronic low back pain (Acute) DDD (degenerative disc disease) (Acute) DJD (degenerative joint disease) (Acute) Depression (Acute) H/O: hysterectomy (Acute) Hypothyroidism (Acute) IBS (irritable bowel syndrome) (Acute) Insomnia (Acute) 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) use of opiate analgesic (Acute) Low back pain (Acute) Major depressive disorder, single episode, severe without psychotic features (Acute) Recurrent dislocation, left hip (Acute) Rib fracture (Acute) Physical Therapy Inpatient Evaluation/Re-Eval M1 PT/OT-IP Prior Functional Status Start: 12/20/18 11:08 Freq: NEEDED Status: Active Protocol: Document 12/20/18 09:30 [facility] (Rec: 12/20/18 11:22 [facility] [id number]) Medical Review Prior Functional Status Medical History Reviewed Yes Mobility and Gait FWW for ambulation, multiple dislocations leading to decreased mobility Social History Household Members other Living Arrangements Skilled Nurse Facility Number of Floors (Floors) One Floor Number of Stairs To Enter/Railing? 2 SE rail on L, then 1 step without rail to get into cabin . Lives alone Home Environment Standard Height Toilet Walk in Shower Additional Social History Comment pt lives on [facility] ( above is information for her cabin on [facility]). Most recently @ [facility]. M2 PT-IP Current Condition Start: 12/20/18 11:08 Freq: NEEDED Status: Active Protocol: Document 12/20/18 09:30 [facility] (Rec: 12/20/18 11:22 [facility] [id number]) Physical Therapy Current Condition Current Condition Evaluation Date 12/20/18 Treatment Diagnosis L hip dislocation s/p closed reduction in OR 12/19/18, impaired mobility Precautions Anterior Hip Precautions No Hip Extension No Hip External Rotation Brace L knee splint Other Precautions No stomach sleeping or laying on stomach, no L hip abduction , no extreme extension or flexion. Weight Bearing Status Weight Bearing Status Weight Bear as Tolerated M3 PT-IP Subjective Start: 12/20/18 11:08 Freq: NEEDED Status: Active Protocol: Document 12/20/18 09:30 [facility] (Rec: 12/20/18 11:22 [facility] [id number]) Subjective Physical Therapy Visit Type Type Initial Evaluation Visit Start Time 09:30 Visit Stop Time 10:10 Total Visit Minutes 40 Number of LEAF FAT SCRAPER Visits 0 Physical Therapy Visit Comments Patient Comments Pt is worried that the staff may have difficulty helping her at [facility] Patient Goals to not dislocate her hip anymore Therapy Pain Assessment Pain Present Pain Present Denied Pain Location Left Hip Scale Used Numeric (1 - 10) M4 PT-IP Mobility and Gait Start: 12/20/18 11:08 Freq: NEEDED Status: Active Protocol: Document 12/20/18 09:30 [facility] (Rec: 12/20/18 11:22 [facility] [id number]) PT-Bed Mobility Assessment Supine to Sit Supine to Sit Minimal Assistance Sit to Supine Sit to Supine Minimal Assistance Scooting Scooting to Edge of Bed Standby Assistance PT-Transfer Assessment Sit to and From Stand Sit to and from Stand Standby Assistance Equipment Transfer Assistive Device Gait Belt Front Wheeled Walker Orthotic/Prosthetic Devices or Brace: Yes Transfers Transfer Destination Bed Transfer Technique Stand Step Pivot Transfer Ability Level of Assist Standby Assistance Comments Mobility Comments initial lightheadedness but subsided sitting on EOB and no c/o lightheadedness during gait. Gait Assessment Gait Gait Assistance Required: Standby Assistance Distance (Feet) 10 Able to Maintain Weight Bearing Status Yes During Gait Assistive Devices Assistive Device Gait Belt Front Wheeled Walker Gait Deviations General Gait Pattern Antalgic Decreased Stride Length Decreased Feet Clearance Step-to Gait Factors Limiting Gait Function Factors Limiting Gait Function Decreased Activity Tolerance Decreased Strength Pain Poor Safety Awareness Comments Gait Comments mod to max VC for LLE positioning with turning, sit< ->stand. PT-Balance Assessment Sitting Balance and Reactions Static Sitting Balance Ability Good Dynamic Sitting Balance Ability Good Standing Balance and Reactions Static Standing Balance Ability Good Dynamic Standing Balance Ability Fair Device Used FWW M5 PT-IP Objective Assessments Start: 12/20/18 11:08 Freq: NEEDED Status: Active Protocol: Document 12/20/18 09:30 [facility] (Rec: 12/20/18 11:22 [facility] [id number]) Orientation Orientation/Cognition Level of Alertness Alert Orientation Name Age Birthday Month Date Year Day of Week Place Situation Gross Range of Motion Lower Extremity ROM Impairments limited on LLE due to splint and precautions Strength Comments Strength Comments not tested due to precautions and multiple dislocations Sensation Assessment Sensation Gross Sensation WNL M6 PT-IP Treatment Start: 12/20/18 11:08 Freq: NEEDED Status: Active Protocol: Document 12/20/18 09:30 [facility] (Rec: 12/20/18 11:22 [facility] [id number]) Physical Therapy Treatment Education Education Provided Precautions Weight Bearing Status Post-Op Packet Safety M7 PT-IP Assessment and Plan Start: 12/20/18 11:08 Freq: NEEDED Status: Active Protocol: Document 12/20/18 09:30 [facility] (Rec: 12/20/18 11:22 [facility] [id number]) PT Summary Assessment and Plan Potential Rehabilitation Potential Good Status of Condition at Evaluation Evolving Summary Impairments Pain ROM Strength Balance Bed Mobility Transfers Gait Activity Tolerance Assessment Summary Pt is s/p day one closed reduction L hip dislocation. Pt able to be successfully reduced in OR, and plan is for her to have L KRUNAL revision on 12/22/2018. Pt requires assistance with LLE management and cuing for abiding by precautions, but is able to ambulate with minimal pain/discomfort. Pt will require assistance with bed mobility, LLE management to avoid hip abduction and ER. Pt is safe to transfer to w/ with assistance for transport back to [facility] when medically stable. Goals Bed Mobility Goal Contact Guard Assistance Transfer Goal Standby Assistance Gait Goal Standby Assistance Front Wheel Walker Gait Distance 50 Other Goals STG: pt will be able to ambulate 35 ft with FWW and SBA in 1 day. Days to Meet Goals 3 Frequency of Treatment Frequency Of Treatment Twice a Day Treatment Plan Physical Therapy Treatment Plan Bed Mobility Training Transfer Training Gait Training Balance Retraining Discharge Planning Neuromuscular Re-ed Other Recommendations and Next Treatment cont. to educate on Focus precautions, progress bed mobility and gait. Recommendations To Nursing Amount of Assist Needed 1 Person Assist Discharge Recommendations PT Discharge Recommendations SNF Rehab
--- NOTE | 2018-12-20 13:59 | PC.NURSE ---
Discharge Lancaster removed this AM. Bladder scan around 1230 and was 550ml. 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 Went and spoke with pt and she agreed to use BSC since it was right next to bed. She was able to void 575ml. Report called to Jailene at [facility]. Pt to return to hospital on saturday for revision surgery. PIV removed prior to d/c. Pt left in w/c with transporter to [facility] around 1405
== END 2018-12-20 14:05 ==
LOC: ED 12-19 00:09 → AC 12-19 00:14
PROVIDERS: Orthopaedic Surgery; Admitting Provider Orthopaedic Surgery Foot and Ankle Surgery; Emergency Provider Emergency Medicine; Family Provider Family Medicine; PCP Family Medicine; Visit Provider Orthopaedic Surgery Foot and Ankle Surgery
PROC: (CPT 27266; principal; 2018-12-19 17:30)
DX: T84.021A Dislocation of internal left hip prosthesis, initial encounter (principal); F32.9 Major depressive disorder, single episode, unspecified; F31.9 Bipolar disorder, unspecified; M19.90 Unspecified osteoarthritis, unspecified site; E03.9 Hypothyroidism, unspecified; M54.5 Low back pain; F11.90 Opioid use, unspecified, uncomplicated
CPT/HCPCS: 27266; 36591; 72170; 73502; 80053; 83036; 85025; 85651; 86140; 93005; 94770; 97116; 97162; 99285; G0378; J1170; J2704

== ENCOUNTER 2018-12-22 06:36 | Inpatient (IN) | payer MEDICARE, BC, SELFPAY ==
[2018-09-14 19:14] VITALS: BMI 19.4
[2018-12-17 12:27] VITALS: BMI 19.2
[2018-12-19 01:13] VITALS: BMI 18.3
[2018-12-22] VITALS (17 sets, daily range): BP systolic 100–133; BP diastolic 50–91; PULSE 60–94; RESP 9–20; TEMP 36.4–37.3; O2SAT 92–98; BMI 19.2
--- NOTE | 2018-12-22 | DI.RAD.S_ITS ---
PROCEDURE: XR HIP W PEL IF DONE LT 2V INDICATIONS: POST OP LEFT HIP REVISION TECHNIQUE: AP pelvis and lateral view of the left hip acquired. COMPARISON: [facility], [place]AVON, XR HIP W PEL IF DONE LT 2V, 12/19/2018, 17:46. FINDINGS: Bones: Patient is status post left hip arthroplasty, with hardware components in expected positions. The hip joint appears congruent. The visualized bony structures appear intact. Soft tissues: Overlying postoperative changes are noted. No suspicious soft tissue densities. IMPRESSION: Normal anatomic alignment after left total hip arthroplasty with surgical drain overlying the operative bed. Prior right total hip arthroplasty noted. Dictated by: Valerio Samaniego M.D. on 12/22/2018 at 14:36 Approved by: Valerio Samaniego M.D. on 12/22/2018 at 14:37
[2018-12-22] MEDS: LACTATED RINGERS 1,000 ML 42 ML IV ×2 (07:02→10:00)
[2018-12-22] MEDS: VANCOMYCIN 1,000 MG/200 ML FROZ.PIGGY 200 MG IV (07:35)
--- NOTE | 2018-12-22 07:54 | PM.PREOP ---
Pre-operative Note Interval Note History & Physical reviewed/Exam performed by Physician: Yes Changes to H&P: No H&P completed within 30 days and has changed as indicated here:: repeat anterior dislocation reduced saturday
--- NOTE | 2018-12-22 07:59 | P.OP_ITS ---
Operative Date/Time/Diagnoses Date of procedure: 12/22/18 Time of procedure: 07:55 Pre-op diagnosis: failed left hip replacement with instability Post-op diagnosis: same Procedure & Clinicians Procedure: Revision left total hip arthroplasty Same procedure as scheduled: Yes Indications: The patient has a history of a left total hip arthroplasty 16 years ago and has recently developed recurrent instability. Her clinical exam was suggestive of polyethylene wear and laxity. Non-operative management has failed including a trial of bracing and marked activity modification and the patient has requested revision left total hip replacement. The risks, benefits and alternatives to surgery were discussed with the patient prior to proceeding. R isks discussed included, but were not limited to, failure to relieve pain, leg length discrepancy, dislocation, stiffness, infection, nerve damage, deep venous thrombosis, pulmonary embolism, stroke, coma, heart attack, permanent paralysis and , as well as the potential need for eventual revision of the prosthetic. Surgeon: Gerri Sandoval Operations Assistant: Yasmine Davis Anesthesia Type: General and Spinal Operative Notes Findings: Moderate polyethylene wear, instability predominantly posteriorly, minimal impingement posteriorly Closure Type: primary Specimen(s): other Prosthetic devices, grafts, tissues, transplants, or devices: The pew Duraloc 54 mm locking ring 54 mm cup 10 degree lipped 32 mm inner diameter and a 32+ 9 femoral head Applied: drain(s) Estimated Blood Loss (mL): 250 Blood products transfused: none Procedure in detail: The patient was seen in the pre-operative area, where the patient identified the left hip as the operative site and this was marked with my initials. The patient received pre-operative antibiotics and was taken to the operating room and placed on the operative table in the right lateral decubitus position after satisfactory anesthesia. A time study technician out was performed. The left leg was prepared from the ankle to the iliac crest with ChloroPrep in the usual fashion and draped through sterile drapes. The hip was approached through an approximately 20 cm incision centered over the greater trochanter and curving gently posteriorly as it went proximally. This was carried sharply to the fascia chula, which was divided and retracted with a self retaining retractor. The trochanteric bursa was excised with care being taken to avoid the sciatic nerve, which was identified and protected throughout the case. The posterior scar was incised and the capsulomuscular flap was raised and tagged for later repair. The hip was dislocated. The hip was specifically tested for instability. It was easier to dislocate her posteriorly. She had a pretty substantially positive Shuck test, there was obvious thickening of the capsule and moderate synovitis. Cultures were sent of the fluid and of the deep tissue. There did not appear to be any evidence of infection. Retractors were placed around the femur. The head was removed without difficulty. A pocket was made to place the neck anteriorly. The leg was carefully positioned to allow the femur and neck to be translated anteriorly. Some of the synovium was carefully resected from the capsule. The Duraloc liner removing device was then placed around the polyethylene. Combination of multiple osteotomes and the Duraloc removing device was used to pop the polyethylene free from the underlying shell. The shell was tested and was noted to be stable. Soft tissue was carefully removed so that there was visualization of the cup circumferentially. The locking ring was removed. Trial reduction was done using a 32 mm x 54 10 degree lipped liner with the lip placed posterior inferior. I spun the lip about 10? more inferior than the previously positioned liner. The head that was removed was a +6. Trial reduction with a +9 by 32 mm head showed no tendency towards posterior impingement. No evidence of anterior instability. She still had reasonable shuck. At 45? she was stable to about 90? of internal rotation. At 90? she was stable to about 70? of internal rotation. I specifically checked the cup in detail and did not feel that I could substantially improve her overall stability by removing the polyethylene liner and going with a new metal cup. The stability was felt to be satisfactory and the appropriate components were opened, and the trials were removed. The acetabular liner was impacted into position. The final head was then impacted. The hip was meticulously irrigated with normal saline. The acetabulum was cleared of all material and the hip relocated one final time. The capsulomuscular flap was then repaired to the greater trochanter though an awl hole using the tag sutures. The short external rotators were repaired with a nonabsorbable suture. A deep drain was placed and brought out anteriorly. The fascia chula was closed with nonabsorbable suture. The subcutaneous layer was closed with barbed sutures and lex. An jeremias dressing was applied and the patient was taken to recovery having tolerated the procedure well. Complications: none Condition: stable Disposition: Acute Care Plan for aftercare: The patient will be maintained on a standard total hip replacement protocol with weight bearing as tolerated and posterior hip precautions, with no hip hyper extension or external rotation greater than 20?.. The patient will receive Aspirin and sequential compression devices for DVT prophylaxis. The patient will be discharged home when safe for the home environment.
[2018-12-22] MEDS: TRANEXAMIC ACID 1,000 MG VIAL 1000 MG IV ×2 (08:01→09:59)
[2018-12-22] MEDS: CEFAZOLIN 2 GM/100 ML FROZ.PIGGY IV ×3 (08:01→23:56)
[2018-12-22] MEDS: BUPIVACAINE 0.25% W/ EPI VIAL 50 ML INJ (08:23)
--- NOTE | 2018-12-22 08:41 | SUR.OPER ---
Lateral on padded OR bed. Gel axillary roll. Arms secured on padded armboard with pillow supporting top arm. Padded hip positioner braces x4 - anterior and posterior chest and pelvis. Additional gel pad used anterior pelvis. Gel pad under bottom leg from knee to foot and secured with tape over sheet.
[2018-12-22] MEDS: BUPIVACAINE LIPOSOME 266 MG/20 ML VIAL INJ (09:03)
[2018-12-22] MEDS: HYDROMORPHONE 2 MG INJ 0.5 MG IV (10:46)
[2018-12-22] MEDS: LACTATED RINGERS 1,000 ML 125 ML IV ×2 (11:30→20:20)
--- NOTE | 2018-12-22 12:15 | SUR.PHASEI ---
1117 To acute care, Report given to LYNNE Henry. Patient awake and oriented, skin warm and dry, resp even and regular. Burning pain 3/10 in operative hip. EARL remains on & hemovac compressed throughout PACU stay. Dressing remains CDI. Spinal resolving to patella, no motion/sensation in foot. Feet slightly warmer than upon arrival; new warm blanket to feet upon arrival to floor. Tolerated ice chips and crackers without nausea. Pleasant. Reported doppler pulse/unable to palpate pulse on arrival to acute care. Clothing and personal bag to room with patient. RA sat below 90%; put on 2LNP and continuous pulse oximeter. SCDs on. No questions from patient or staff.
--- NOTE | 2018-12-22 13:44 | CM.DANOTE ---
Discharge Planning/Care Management DCP: assessment: case received, EMR reviewed and met with pt. Reintroduced self and role (familiar with pt from her stay here 12/19-12/20.) Confirmed her plan to return to [facility] when stable for same and under her Medicare snf benefit. Pt is a 68 year old female who admitted early this morning to care of Dr. Saad Sandoval for a xcheduled L KRUNAL. PCP: Dr. Sabrina Ortiz: [facility] Payer: Medicare and BS out of [facility]. Admission status: confirmed INPT: per UR LYNNE Rangel. [facility] is anticipating her return to their facility for rehab/recovery before she returns to her home on [facility]. Expected to be 12/25 or >. PASRR: will not be needed as is a return to the facility. P: Follow as per above. FCC: 12/25 or >, whenever stable for same. CM Discharge Assessment Start: 12/22/18 13:40 Freq: Status: Active Protocol: Document 12/22/18 13:41 ITV (Rec: 12/22/18 13:44 ITV [id number]) Discharge Planning Assessment Advance Directives? No History Provided By Patient Medical Record Has Patient been admitted in last 30 Yes days? Comment 12/19 to 12/20: OBS status: return to [facility] to await surgery planned for today 12/22. Prior Living Arrangements House Comment but has been at [facility] since November under pvt pay for rehab/recovery Household Members none other Facility Name Admitted From: [facility] Willing to Return to Facility? Yes Patient/Family Preference Residential Facility Comment [facility] is holding the bed. Referrals Initiated Residential Additional Comment confimed with [facility] admissions: [place] that bed is being held Whiteboard Updated in Patient Room with Yes name and ext. # of O And M Supervisor Review Status In Process Next Review Type Continued Stay Review Pre-Anesthesia Assessment Start: 12/17/18 12:27 Freq: Status: Active Protocol: Document 12/17/18 12:27 [facility] (Rec: 12/17/18 14:41 [facility] [id number]) Pre-Anesthesia Assessment Patient Information Reviewed Via Chart Review Primary Care Provider Jose F Ortiz Seen Specialist in Last 12 Months Yes Specialist Seen Emergency Orthopedist Primary Language Uzbek Facility Engineer Required No Height 162.56 cm Weight 50.802 kg Body Mass Index (BMI) 19.2 Hx Anesthesia Reactions No Hx Family Anesthesia Reaction No Hx Malignant Hyperthermia No Hx Blood Transfusion Reaction No Anesthesia Review Requested No 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 No Hx Sleep Apnea No CPAP/BIPAP use not prescribed Currently Taking a Beta Rose No Has a Hand Bender No Cardiac Testing No Hx Pacemaker/ICD No Pacemaker Rep Required? No Cardiac Clearance Received Not Applicable Urinary Catheter Present No Hx Urinary Self Catheterization No Diabetes No Patient No Lactating No Hx Drug Resistant Organism No Presence of External or Internal Medical No Devices Lives With family Patient Discharge Plan Description Return Home Advance Directives? No
[2018-12-22] MEDS: ACETAMINOPHEN 325 MG TABLET 975 MG PO ×2 (14:07→20:20)
--- NOTE | 2018-12-22 15:00 | PC.NURSE ---
Pt arrived on floor from PACU at 11:30. Denies pain at this time. Natalie dressing to left hip CDI and HV in place, patent and draining SS. O2sats = 97% on 2L. This was removed while pt is awake. Using IS after instructions given. Lancaster catheter in place. Refused to have it removed at this time. Ambulating in hallway with PT, eating lunch with no problems. Has a fentanyl patch in place on her right thigh that is chronic for her - she gets it replaced every 48 hours instead of 72 - pharmacy aware. Pt has come from [facility] and lives by herself on [facility] [address] [facility]. Plans to do further rehab at [facility] before returning to [facility].
--- NOTE | 2018-12-22 15:41 | PT.IIE ---
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, initial encounter (12/22/18) Surgery Performed Operation Date: 12/22/18 07:45 Actual Procedures p Total Hip Arthroplasty Revision, poly liner and head replacement(Left) - Gerri Sandoval MD Surgical History (Last Reviewed 12/19/18 @ 17:25 by Patricia Anderson MD) Hx of parotidectomy (Acute) History of bilateral total hip arthroplasty (Acute) Medical History (Last Reviewed 12/19/18 @ 17:25 by Patricia Anderson MD) Arthritis (Acute) Bipolar 1 disorder (Acute) DDD (degenerative disc disease) (Acute) DJD (degenerative joint disease) (Acute) Depression (Acute) H/O: hysterectomy (Acute) Hypothyroidism (Acute) IBS (irritable bowel syndrome) (Acute) Insomnia (Acute) 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 (Acute) Low back pain (Acute) Major depressive disorder, single episode, severe without psychotic features (Acute) Recurrent dislocation, left hip (Acute) Rib fracture (Acute) Chronic low back pain (Acute) Physical Therapy Inpatient Evaluation/Re-Eval M1 PT/OT-IP Prior Functional Status Start: 12/22/18 14:58 Freq: NEEDED Status: Active Protocol: Document 12/22/18 14:45 (Rec: 12/22/18 15:41 [email or web address]) Medical Review Prior Functional Status Medical History Reviewed Yes Diet/Fluid Consistency Regular Communication No deficits noted Mobility and Gait Pt had multiple episodes of L hip dislocations since September,. Pt admitted to [facility] since 11/26/18 due to hip instability who used a FWW for mobility for a few days but she was then able to amb without AD independently/ under supervision. Activities of Daily Living and IADL's Pt was independent in all ADLs and IADLs without using AD at home in [facility]. She does need SBA/ supervision in [facility]. Social History Household Members none other Living Arrangements House Number of Floors (Floors) One Floor Number of Stairs To Enter/Railing? 3 IVON with L rail going up Home Environment Standard Height Toilet Walk in Shower Employment Status Retired Additional Social History Comment Pt lived alone in a cabin in [facility] with 3 IVON L rail who has a horse and a dog. Pt 's brother currently takes care of them. Pt was very independent before who was able to amb on uneven ground and beach without AD. She is able to Pt states she had multiple episodes of L hip dislocations since last September. She recently had another episode in early November and admitted to [facility]. She was then transferred to [facility] for rehab who was able to amb without AD after a few days. Pt had her first L KRUNAL 20 years ago and R KRUNAL couple years ago. M2 PT-IP Current Condition Start: 12/22/18 14:58 Freq: NEEDED Status: Active Protocol: Document 12/22/18 14:45 HH (Rec: 12/22/18 15:41 [email or web address]) Physical Therapy Current Condition Current Condition Evaluation Date 12/22/18 Treatment Diagnosis Revision L KRUNAL, difficulty in walking Onset Date 12/22/18 Precautions Posterior Hip Precautions No Hip Flexion > 90 degrees No Hip Internal Rotation No Hip Adduction Other Precautions and no hip hyperextension and ER pass 20 degrees. Weight Bearing Status Weight Bearing Status Weight Bear as Tolerated M3 PT-IP Subjective Start: 12/22/18 14:58 Freq: NEEDED Status: Active Protocol: Document 12/22/18 14:45 HH (Rec: 12/22/18 15:41 [email or web address]) Subjective Physical Therapy Visit Type Type Initial Evaluation Visit Start Time 14:45 Visit Stop Time 15:15 Total Visit Minutes 30 Notes [address] is in place. Number of NURSING SERVICE ADMINISTRATOR Visits 0 Physical Therapy Visit Comments Patient Comments Pt agreeable to mobilize with PT. Patient Goals To return home Therapy Pain Assessment Pain Present Pain Present Denied Pain M4 PT-IP Mobility and Gait Start: 12/22/18 14:58 Freq: NEEDED Status: Active Protocol: Document 12/22/18 14:45 (Rec: 12/22/18 15:41 [email or web address]) PT-Bed Mobility Assessment Supine to Sit Supine to Sit Standby Assistance 1 Person Assistance Head of Bed Elevated Scooting Scooting to Edge of Bed Standby Assistance Scooting Up and Down in Bed Standby Assistance PT-Transfer Assessment Sit to and From Stand Sit to and from Stand Contact Guard Assistance 1 Person Assistance Use of Upper Extremities Equipment Transfer Assistive Device Bed Rail Gait Belt Front Wheeled Walker Orthotic/Prosthetic Devices or Brace: No Transfers Transfer Destination Bed Chair Transfer Ability Level of Assist Contact Guard Assistance Comments Mobility Comments Pt was seen in bed upon assessment. She was able to get up from supine (elevated HOB) to EOB and stood up with CGA FWW. Pt used stagger stance for sit<>stand movements to avoid excessive WB and hip ROM for L hip. Pt able to use stand step pivot with FWW and maintain good balance the entire time. No signs of acute distress/ LOB noted. Gait Assessment Gait Gait Assistance Required: Contact Guard Assist Distance (Feet) 100 Able to Maintain Weight Bearing Status Yes During Gait Assistive Devices Assistive Device Gait Belt Front Wheeled Walker Gait Deviations General Gait Pattern Antalgic Decreased Stride Length Decreased Feet Clearance Narrow Based Gait Step-to Gait Factors Limiting Gait Function Factors Limiting Gait Function Decreased Activity Tolerance Decreased Sensation Decreased Strength Pain Poor Balance Comments Gait Comments Pt amb from EOB to hallway and returned to bedside chair with CGA 1pa. Pt demonstrates step to and L antalgic gait pattern. Pt denies pain but feel good. Pt was able to increase her stride length and feet clearance after first 50 feet and she did show increase WB through her UEs on FWW. Pt overall presented steady and safe gait. She needed min cues to keep her L foot in neural position while ambulating. Stair Climbing Assessment Comments Stair Climbing Comments did not attempt PT-Balance Assessment Sitting Balance and Reactions Static Sitting Balance Ability Normal Dynamic Sitting Balance Ability Normal Standing Balance and Reactions Static Standing Balance Ability Good Dynamic Standing Balance Ability Fair M5 PT-IP Objective Assessments Start: 12/22/18 14:58 Freq: NEEDED Status: Active Protocol: Document 12/22/18 14:45 (Rec: 12/22/18 15:41 [email or web address]) Orientation Orientation/Cognition Level of Alertness Alert Orientation Name Age Birthday Month Date Year Day of Week Place Situation Language Function Ability No Deficits Noted Safety Awareness Understands Safety Issues Memory Description No Deficits Noted Gross Range of Motion Upper Extremity ROM Assessment Within Functional Limits Lower Extremity ROM Assessment Left Impaired Strength Upper Extremity Strength Assessment Within Functional Limits Lower Extremity Strength Assessment Left Impaired Comments Strength Comments 3/5 for L hip strength grossly Coordination Assessment Gross Coordination Gross Coordination WNL Sensation Assessment Sensation Gross Sensation Left LE Impaired Light Touch Impaired Proprioception (Position) Impaired Sensation Description Numbness Comments Sensation Comments at left upper thigh Muscle Tone Muscle Tone WNL Yes M6 PT-IP Treatment Start: 12/22/18 14:58 Freq: NEEDED Status: Active Protocol: Document 12/22/18 14:45 (Rec: 12/22/18 15:41 [email or web address]) Physical Therapy Treatment Exercises Exercises Ankle Pumps Gluteal Sets Quad Sets Heel Slides Straight Leg Raises Education Education Provided Precautions Weight Bearing Status Post-Op Packet Safety Other Treatments Other Treatment Performed standing lateral weight shift M7 PT-IP Assessment and Plan Start: 12/22/18 14:58 Freq: NEEDED Status: Active Protocol: Document 12/22/18 14:45 (Rec: 12/22/18 15:41 [email or web address]) PT Summary Assessment and Plan Potential Rehabilitation Potential Good Status of Condition at Evaluation Evolving Summary Impairments Pain ROM Strength Balance Sensation Bed Mobility Transfers Gait Activity Tolerance Assessment Summary Pt is a pleasant 68yo female s /p revision of L KRUNAL posterior approach day 1. Pt follows posterior hip precautions plus no L hip hyperextension and ER pass >20degrees. Pt was able to recall all precautions upon assessment. Pt demonstrates difficulty in walking today with step to and L antalgic gait pattern. She also needed cues to position her hip in neutral upon ambulation. Per pt's reports, pt lives alone with her house surrounded by uneven surfaces and has 3 IVON. Pt has to clear them prior to d/c home. Pt will need raised toilet seat, shower chair ,grab bar in shower ,FWW and SPC as well for safety. At this point, pt will benefit from SNF for short term rehab to address her needs for unsafe surroundings around her house and aforementioned impairments . Goals Bed Mobility Goal Independent Transfer Goal Independent Front Wheeled Walker Gait Goal Independent Front Wheel Walker Gait Distance 200 Other Goals climb steps x 3 x 2set independently with L rail Days to Meet Goals 5 Frequency of Treatment Frequency Of Treatment Twice a Day Treatment Plan Physical Therapy Treatment Plan Bed Mobility Training Transfer Training Gait Training Therapeutic Exercise Balance Retraining Post Op Education Discharge Planning Hot or Cold Pack Neuromuscular Re-ed Other Recommendations and Next Treatment review precautions Focus gait training as blanka stair climbing as blanka Recommendations To Nursing Amount of Assist Needed 1 Person Assist Discharge Recommendations PT Discharge Recommendations SNF Rehab Equipment Needed for Home Before raised toilet seat with Discharge armrest shower seat with armrest grab bars in shower FWW, SPC
--- NOTE | 2018-12-22 15:46 | PM.CHAP ---
visit with patient after hip surgery. She is very excited to be up and walking already, and since she lives on [facility], wants to be certain she can maintain on her own before going home.
[2018-12-22] MEDS: OXYCODONE IR 5 MG TABLET PO ×2 (16:05→17:36)
[2018-12-22] MEDS: LIOTHYRONINE 5 MCG TABLET 10 MCG PO (17:36)
--- NOTE | 2018-12-22 19:09 | PC.NURSE ---
Addendum entered by Divina La R.N. 12/22/18 21:37: Pt med at 2120 w/ two percocet. will assess. EARL dsg CDI. IVF continue as per orders w/on incident. Hemavac intact/patent. Call light w/in kieran, bed alarm on for pt safety. Continue w/plan of care. Original Note: Pt resting at intervals. Lungs clear, SpO2 97% RA Left hip dsg EARL CDI Med at 1600 w/percolone one tab w/no relief. Given second pill at 1730 w/ relief. IVF infusing into LFA via pump w/o incidence. Stable post op course. Call light w/in [facility], bed alarm on for pt safety.
[2018-12-22] MEDS: DOCUSATE 100 MG CAPSULE PO (20:21)
[2018-12-22] MEDS: QUETIAPINE 25 MG TABLET PO (20:21)
[2018-12-22] MEDS: ASPIRIN EC 81 MG TABLET PO (20:21)
[2018-12-22] MEDS: OXYCODONE/ACETAMINOPHEN 5/325 TABLET 2 TAB PO (21:21)
[2018-12-22] MEDS: hydrOXYzine pamoate 25 MG CAPSULE PO (23:56)
[2018-12-23] MEDS: OXYCODONE IR 5 MG TABLET PO (00:12)
[2018-12-23] MEDS: ALPRAZolam 0.25 MG TABLET 0.5 MG PO ×2 (01:37→13:06)
[2018-12-23 03:00] VITALS: BP 116/60; PULSE 64; RESP 16; TEMP 36.5; O2SAT 96
[2018-12-23] MEDS: OXYCODONE/ACETAMINOPHEN 5/325 TABLET 2 TAB PO ×2 (03:06→08:20)
--- NOTE | 2018-12-23 03:08 | PC.NURSE ---
Addendum entered by Colleen De La Garza R.N. 12/23/18 07:04: Pt has gotten good relief with IV Dilaudid but states that she doesn't feel like she will maintain relief on current PO regimen. Will relay to dayshift of pt's concerns. Original Note: Addendum entered by Colleen De La Garza R.N. 12/23/18 05:28: Called Dr Sandoval who ordered 1mg Dilaudid IV q1hr PRN for relief. Does not want to order a CLOUD SECURITY ARCHITECT at this time. Original Note: Addendum entered by Colleen De La Garza R.N. 12/23/18 04:56: Placed another call to on-call surgeon Dr Zaragoza and left another message. Original Note: Addendum entered by Colleen De La Garza R.N. 12/23/18 04:24: Called answering service to see if they could reach on-call surgeon, they were unable to as well but left a message. Will continue to try. Original Note: Addendum entered by Colleen De La Garza R.N. 12/23/18 03:52: Called on-call surgeon and left a voicemail to return call, pt still c/o unrelieved pain to left hip. Original Note: Shift note: Received pt from evening shift. At time of assessment pt reporting tolerable pain of 4/10 but requesting pain medication. Medicated pt per JAN with 5mg Oxycodone and 25mg Vistaril at 0012. At 0120 pt reporting pain but was very concerned that her sister in law was going to call the hospital and convince her nurse to change her medications. Educated pt that her AMANDO does not have control over her medications and their management and would not be able to talk us into change her medications and how much or often they are given. Asked pt if she was feeling anxious over current hospitalization and having her needs address which she confirmed. Medicated pt per JAN with 0.5mg Xanax and encouraged her to attempt to rest as pt had been reporting an inability to sleep. Checked on pt at 0300 and found her to be sitting up in bed and c/o continued in ability to get rest and that her pain was now a 7/10 and not being managed appropriately. Re-educated pt on use of the call light to make her needs known between pt checks if she needed the staff. Offered pt 10mg Percocet and educated that it was Oxycodone with APAP and pt reported that APAP and Ibuprofen do nothing for my pain. Educated pt that it was more oxycodone than what I had previously given her but had APAP in it as well. Pt agreed to take this medication. Will notify correspondence dictator surgeon if pt continues to not get relief from available medications.
[2018-12-23] MEDS: HYDROMORPHONE 1 MG INJ IV ×4 (05:36→21:23)
[2018-12-23 05:57] LABS: Hematocrit 30.7 % (36-46); Hemoglobin 10.2 g/dL (12.0-16.0)
[2018-12-23 08:08] VITALS: BP 124/49; PULSE 58; RESP 14; TEMP 36.8; O2SAT 95
[2018-12-23] MEDS: LITHIUM 150 MG IR CAPSULE PO (08:21)
[2018-12-23] MEDS: DOCUSATE 100 MG CAPSULE PO ×2 (08:21→21:22)
[2018-12-23] MEDS: ASPIRIN EC 81 MG TABLET PO ×2 (08:21→21:22)
[2018-12-23] MEDS: LEVOTHYROXINE 25 MCG TABLET 12.5 MCG PO (08:21)
[2018-12-23] MEDS: LIOTHYRONINE 25 MCG TABLET PO (08:21)
[2018-12-23] MEDS: DULOXETINE 30 MG CAPSULE 120 MG PO (08:22)
--- NOTE | 2018-12-23 08:42 | PM.PNPO.1 ---
Subjective Date Patient Seen: 12/23/18 Time Patient Seen: 08:42 Interval history: Hospital day 2, postop day 1 following right total hip revision of polyethylene and femoral head by Dr. Sandoval. Patient remained stable postoperatively. She did have 1 episode of PT yesterday. She does have fentanyl patch 100 mcg. IV breakthrough pain and Dr. Sandoval ordered Dilaudid 1 mg IV q.1h. Patient also on Percocet and Tylenol. She does have echo dressing and Hemovac in place. She is scheduled to go back to [facility] for further rehab. Exam Vital Signs (past 8 hours): - 12/23/18 03:00 12/23/18 08:08 Temperature 97.7 F 98.2 F Pulse Rate 64 58 L Respiratory Rate 16 14 Blood Pressure 116/60 124/49 L Pulse Oximetry 96 95 Oxygen Delivery Method Room Air Oxygen Flow Rate 0 Narrative Exam Narrative: Alert, oriented no acute distress resting in bed. Legs. Natalie dressing in place without drainage or inflammation. Hemovac in place with decreasing drainage. No calf pain or swelling. Pulses symmetrical. Patient does have Lancaster catheter in place. Objective Labs Result Diagrams: 12/23/18 05:19 Labs: Laboratory Results - last 24 hr 12/23/18 05:19 Hgb 10.2 L Hct 30.7 L Assessment & Plan Post-op Postoperative Procedures Operation Date: 12/22/18 07:45 Actual Procedures Side Surgeon p Total Hip Arthroplasty Revision, poly liner and head replacement Left Gerrijana Sandoval MD Plan: Patient will work with PT today. DC Lancaster catheter when she is more active. She is full weight-bearing to the left hip with the hip precautions of no hyperextension and no external rotation more than 20?. DC Hemovac once drainage decreased. Will change the patient's pain medication to oxycodone from Percocet to limit her acetaminophen use plan discharged to [facility] once she is stable. Quality VTE Deep Vein Thrombosis/Pulmonary Embolism Present on Admission: No
[2018-12-23] MEDS: OXYCODONE IR 10 MG TABLET PO ×3 (11:59→18:17)
[2018-12-23] MEDS: IBUPROFEN 600 MG TABLET PO (12:00)
--- NOTE | 2018-12-23 12:22 | PT.IPTN ---
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, initial encounter (12/22/18) Surgery Performed Operation Date: 12/22/18 07:45 Actual Procedures p Total Hip Arthroplasty Revision, poly liner and head replacement(Left) - Greri Sandoval MD Physical Therapy Treatment Note M2 PT-IP Current Condition Start: 12/22/18 14:58 Freq: NEEDED Status: Active Protocol: Document 12/22/18 14:45 HH (Rec: 12/22/18 15:41 HH [id number]) Physical Therapy Current Condition Current Condition Evaluation Date 12/22/18 Treatment Diagnosis Revision L KRUNAL, difficulty in walking Onset Date 12/22/18 Precautions Posterior Hip Precautions No Hip Flexion > 90 degrees No Hip Internal Rotation No Hip Adduction Other Precautions and no hip hyperextension and ER pass 20 degrees. Weight Bearing Status Weight Bearing Status Weight Bear as Tolerated M3 PT-IP Subjective Start: 12/22/18 14:58 Freq: NEEDED Status: Active Protocol: Document 12/23/18 11:20 CLB (Rec: 12/23/18 12:22 CLB [email or web address]) Subjective Physical Therapy Visit Type Type Treatment Note Visit Start Time 11:20 Visit Stop Time 11:45 Total Visit Minutes 25 Number of BRANCH CREDIT COUNSELOR Visits 1 Physical Therapy Visit Comments Patient Comments Pt agreeable to mobilize with PT. Therapy Pain Assessment Pain When Pain Assessed During Mobility Pain Present Pain Present Pain Reported Location Left Hip Intensity 8 Scale Used Numeric (1 - 10) Pain Management Techniques Modification of Treatment Re-positioning Timing of Activity with Medications M4 PT-IP Mobility and Gait Start: 12/22/18 14:58 Freq: NEEDED Status: Active Protocol: Document 12/23/18 11:20 CLB (Rec: 12/23/18 12:22 CLB [email or web address]) PT-Bed Mobility Assessment Supine to Sit Supine to Sit Standby Assistance 1 Person Assistance Head of Bed Elevated Scooting Scooting to Edge of Bed Standby Assistance Scooting Up and Down in Bed Standby Assistance PT-Transfer Assessment Sit to and From Stand Sit to and from Stand Contact Guard Assistance 1 Person Assistance Use of Upper Extremities Equipment Transfer Assistive Device Gait Belt Front Wheeled Walker Orthotic/Prosthetic Devices or Brace: No Transfers Transfer Destination Bed Transfer Ability Level of Assist Contact Guard Assistance Gait Assessment Gait Gait Assistance Required: Contact Guard Assist Distance (Feet) 80 Assistive Devices Assistive Device Gait Belt Front Wheeled Walker Gait Deviations General Gait Pattern Antalgic Decreased Stride Length Decreased Feet Clearance Narrow Based Gait Step-to Gait Factors Limiting Gait Function Factors Limiting Gait Function Decreased Activity Tolerance Decreased Sensation Decreased Strength Pain Poor Balance Comments Gait Comments Pt with increased pain with ambulation today. Pt is CGA with FWW using a step to gait pattern with good balance and UE strength. Stair Climbing Assessment Comments Stair Climbing Comments did not attempt M5 PT-IP Objective Assessments Start: 12/22/18 14:58 Freq: NEEDED Status: Active Protocol: Document 12/22/18 14:45 HH (Rec: 12/22/18 15:41 [email or web address]) Orientation Orientation/Cognition Level of Alertness Alert Orientation Name Age Birthday Month Date Year Day of Week Place Situation Language Function Ability No Deficits Noted Safety Awareness Understands Safety Issues Memory Description No Deficits Noted Gross Range of Motion Upper Extremity ROM Assessment Within Functional Limits Lower Extremity ROM Assessment Left Impaired Strength Upper Extremity Strength Assessment Within Functional Limits Lower Extremity Strength Assessment Left Impaired Comments Strength Comments 3/5 for L hip strength grossly Coordination Assessment Gross Coordination Gross Coordination WNL Sensation Assessment Sensation Gross Sensation Left LE Impaired Light Touch Impaired Proprioception (Position) Impaired Sensation Description Numbness Comments Sensation Comments at left upper thigh Muscle Tone Muscle Tone WNL Yes M6 PT-IP Treatment Start: 12/22/18 14:58 Freq: NEEDED Status: Active Protocol: Document 12/23/18 11:20 CLB (Rec: 12/23/18 12:22 CLB [email or web address]) Physical Therapy Treatment Exercises Exercises Ankle Pumps Gluteal Sets Quad Sets Heel Slides Straight Leg Raises Education Education Provided Precautions Weight Bearing Status Post-Op Packet Safety M7 PT-IP Assessment and Plan Start: 12/22/18 14:58 Freq: NEEDED Status: Active Protocol: Document 12/23/18 11:20 CLB (Rec: 12/23/18 12:22 CLB [email or web address]) PT Summary Assessment and Plan Summary Impairments Pain ROM Strength Balance Sensation Bed Mobility Transfers Gait Activity Tolerance Assessment Summary Pt able to recall all Posterior hip precautions including no ER >20 degrees and no L hip hyperextension. Pt with good demonstration of those precautions during mobility. Pt able to ambulate ~80 ft with FWW and CGA but had more pain today with WB. Pt requires SBA for bed mobility and CGA for sit<> stand. Goals Bed Mobility Goal Independent Transfer Goal Independent Front Wheeled Walker Gait Goal Independent Front Wheel Walker Gait Distance 200 Other Goals climb steps x 3 x 2set independently with L rail Days to Meet Goals 5 Frequency of Treatment Frequency Of Treatment Twice a Day Treatment Plan Physical Therapy Treatment Plan Bed Mobility Training Transfer Training Gait Training Therapeutic Exercise Balance Retraining Post Op Education Discharge Planning Hot or Cold Pack Neuromuscular Re-ed Other Recommendations and Next Treatment review precautions Focus gait training as blanka stair climbing as blanka Recommendations To Nursing Amount of Assist Needed 1 Person Assist Discharge Recommendations PT Discharge Recommendations SNF Rehab Equipment Needed for Home Before raised toilet seat with Discharge armrest shower seat with armrest grab bars in shower FWW, SPC
[2018-12-23 12:40] VITALS: BP 119/72; PULSE 83; RESP 16; TEMP 36.6; O2SAT 91
[2018-12-23] MEDS: ACETAMINOPHEN 325 MG TABLET 975 MG PO ×2 (14:53→21:22)
--- NOTE | 2018-12-23 14:59 | PT.IPTN ---
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, initial encounter (12/22/18) Surgery Performed Operation Date: 12/22/18 07:45 Actual Procedures p Total Hip Arthroplasty Revision, poly liner and head replacement(Left) - Gerri Sandoval MD Physical Therapy Treatment Note M2 PT-IP Current Condition Start: 12/22/18 14:58 Freq: NEEDED Status: Active Protocol: Document 12/22/18 14:45 HH (Rec: 12/22/18 15:41 HH [id number]) Physical Therapy Current Condition Current Condition Evaluation Date 12/22/18 Treatment Diagnosis Revision L KRUNAL, difficulty in walking Onset Date 12/22/18 Precautions Posterior Hip Precautions No Hip Flexion > 90 degrees No Hip Internal Rotation No Hip Adduction Other Precautions and no hip hyperextension and ER pass 20 degrees. Weight Bearing Status Weight Bearing Status Weight Bear as Tolerated M3 PT-IP Subjective Start: 12/22/18 14:58 Freq: NEEDED Status: Active Protocol: Document 12/23/18 13:15 CLB (Rec: 12/23/18 14:59 CLB [id number]) Subjective Physical Therapy Visit Type Type Treatment Note Visit Start Time 13:15 Visit Stop Time 13:40 Total Visit Minutes 25 Number of SOLAR PHOTOVOLTAIC DESIGNER Visits 2 Physical Therapy Visit Comments Patient Comments Pt agreeable to mobilize with PT. Therapy Pain Assessment Pain When Pain Assessed During Mobility Pain Present Pain Present Pain Reported Location Left Hip Intensity 8 Scale Used Numeric (1 - 10) Pain Management Techniques Modification of Treatment Re-positioning Timing of Activity with Medications M4 PT-IP Mobility and Gait Start: 12/22/18 14:58 Freq: NEEDED Status: Active Protocol: Document 12/23/18 13:15 CLB (Rec: 12/23/18 14:59 CLB [id number]) PT-Bed Mobility Assessment Supine to Sit Supine to Sit Standby Assistance 1 Person Assistance Head of Bed Elevated Sit to Supine Sit to Supine Standby Assistance Scooting Scooting to Edge of Bed Standby Assistance Scooting Up and Down in Bed Standby Assistance PT-Transfer Assessment Sit to and From Stand Sit to and from Stand Standby Assistance 1 Person Assistance Use of Upper Extremities Equipment Transfer Assistive Device Gait Belt Front Wheeled Walker Orthotic/Prosthetic Devices or Brace: No Transfers Transfer Destination Bed Transfer Ability Level of Assist Standby Assistance Comments Mobility Comments Pt is SBA for all bed mobility . Gait Assessment Gait Gait Assistance Required: Standby Assistance Distance (Feet) 150 Assistive Devices Assistive Device Gait Belt Front Wheeled Walker Gait Deviations General Gait Pattern Antalgic Decreased Stride Length Decreased Feet Clearance Narrow Based Gait Step-to Gait Factors Limiting Gait Function Factors Limiting Gait Function Decreased Activity Tolerance Decreased Sensation Decreased Strength Pain Poor Balance Comments Gait Comments Pt increased ambulation to ~ 150ft in cuevas using a step to gait pattern. Pt requires SBA and cues for posture. Stair Climbing Assessment Comments Stair Climbing Comments did not attempt M5 PT-IP Objective Assessments Start: 12/22/18 14:58 Freq: NEEDED Status: Active Protocol: Document 12/22/18 14:45 HH (Rec: 12/22/18 15:41 HH [email or web address]) Orientation Orientation/Cognition Level of Alertness Alert Orientation Name Age Birthday Month Date Year Day of Week Place Situation Language Function Ability No Deficits Noted Safety Awareness Understands Safety Issues Memory Description No Deficits Noted Gross Range of Motion Upper Extremity ROM Assessment Within Functional Limits Lower Extremity ROM Assessment Left Impaired Strength Upper Extremity Strength Assessment Within Functional Limits Lower Extremity Strength Assessment Left Impaired Comments Strength Comments 3/5 for L hip strength grossly Coordination Assessment Gross Coordination Gross Coordination WNL Sensation Assessment Sensation Gross Sensation Left LE Impaired Light Touch Impaired Proprioception (Position) Impaired Sensation Description Numbness Comments Sensation Comments at left upper thigh Muscle Tone Muscle Tone WNL Yes M6 PT-IP Treatment Start: 12/22/18 14:58 Freq: NEEDED Status: Active Protocol: Document 12/23/18 13:15 CLB (Rec: 12/23/18 14:59 CLB [id number]) Physical Therapy Treatment Exercises Exercises Ankle Pumps Gluteal Sets Quad Sets Heel Slides Straight Leg Raises Education Education Provided Precautions Weight Bearing Status Post-Op Packet Safety M7 PT-IP Assessment and Plan Start: 12/22/18 14:58 Freq: NEEDED Status: Active Protocol: Document 12/23/18 13:15 CLB (Rec: 12/23/18 14:59 CLB [id number]) PT Summary Assessment and Plan Summary Impairments Pain ROM Strength Balance Sensation Bed Mobility Transfers Gait Activity Tolerance Assessment Summary Pt increased ambulation to ~ 150ft w/FWW and SBA. Pt is SBA for all bed mobility and CGA for transfers for safety. Pt recalls all hip precautions and demonstrates good use during tx. Goals Bed Mobility Goal Independent Transfer Goal Independent Front Wheeled Walker Gait Goal Independent Front Wheel Walker Gait Distance 200 Other Goals climb steps x 3 x 2set independently with L rail Days to Meet Goals 5 Frequency of Treatment Frequency Of Treatment Twice a Day Treatment Plan Physical Therapy Treatment Plan Bed Mobility Training Transfer Training Gait Training Therapeutic Exercise Balance Retraining Post Op Education Discharge Planning Hot or Cold Pack Neuromuscular Re-ed Other Recommendations and Next Treatment review precautions Focus gait training as blanka stair climbing as blanka Discharge Recommendations PT Discharge Recommendations SNF Rehab Equipment Needed for Home Before raised toilet seat with Discharge armrest shower seat with armrest grab bars in shower FWW, SPC
[2018-12-23 16:20] VITALS: BP 98/40; PULSE 76; RESP 16; TEMP 36.7; O2SAT 93
[2018-12-23] MEDS: LIOTHYRONINE 5 MCG TABLET 10 MCG PO (18:17)
[2018-12-23 20:58] VITALS: BP 88/46; PULSE 67; RESP 16; TEMP 36.4; O2SAT 90
[2018-12-23] MEDS: QUETIAPINE 25 MG TABLET PO (21:22)
[2018-12-24] VITALS (7 sets, daily range): BP systolic 87–121; BP diastolic 35–73; PULSE 61–97; RESP 17–20; TEMP 36.2–36.8; O2SAT 92–94
[2018-12-24] MEDS: OXYCODONE IR 5 MG TABLET PO ×2 (00:43→06:17)
[2018-12-24] MEDS: IBUPROFEN 600 MG TABLET PO ×2 (00:43→06:18)
--- NOTE | 2018-12-24 08:40 | PM.PNPO.1 ---
Subjective Date Patient Seen: 12/24/18 Time Patient Seen: 08:41 Interval history: Hospital day 3, postop day 2 following left hip revision total hip arthroplasty of polyethylene and femoral head. Patient has remained stable postoperatively. She did work with physical therapy some yesterday. [place] catheter removed yesterday. Still has Hemovac in place. Drainage 5-10 mL per shift. Pain has been well controlled with her fentanyl patch and oxycodone. Patient scheduled go to [facility] tomorrow. Exam Vital Signs (past 8 hours): - 12/24/18 05:22 12/24/18 07:40 Temperature 97.8 F 98.2 F Pulse Rate 76 97 H Respiratory Rate 18 20 Blood Pressure 101/60 99/35 L Pulse Oximetry 93 92 Oxygen Delivery Method Room Air Oxygen Flow Rate 0 Narrative Exam Narrative: Alert oriented no acute distress lying in bed. Legs. Natalie dressing to left hip is dry without drainage or inflammation. Good vacuum. Hemovac in place. No calf pain or swelling. Pulses symmetrical. Objective Labs Result Diagrams: 12/23/18 05:19 Assessment & Plan Post-op Postoperative Procedures Operation Date: 12/22/18 07:45 Actual Procedures Side Surgeon p Total Hip Arthroplasty Revision, poly liner and head replacement Left Gerri Sandoval MD plan: Will DC Hemovac today. Patient will work with PT today. Anticipate discharge to [facility] tomorrow if stable. Quality VTE Deep Vein Thrombosis/Pulmonary Embolism Present on Admission: No
[2018-12-24] MEDS: LEVOTHYROXINE 25 MCG TABLET 12.5 MCG PO (09:19)
[2018-12-24] MEDS: ACETAMINOPHEN 325 MG TABLET 975 MG PO ×3 (09:20→21:40)
[2018-12-24] MEDS: LIOTHYRONINE 25 MCG TABLET PO (09:20)
[2018-12-24] MEDS: ASPIRIN EC 81 MG TABLET PO ×2 (09:21→21:41)
[2018-12-24] MEDS: DOCUSATE 100 MG CAPSULE PO ×2 (09:22→21:41)
[2018-12-24] MEDS: LITHIUM 150 MG IR CAPSULE PO (09:23)
[2018-12-24] MEDS: DULOXETINE 30 MG CAPSULE 60 MG PO (09:24)
[2018-12-24] MEDS: OXYCODONE IR 10 MG TABLET PO ×4 (09:25→19:48)
--- NOTE | 2018-12-24 10:58 | PC.NURSE ---
AM NOTE - pt is alert, states while lying bed, l thigh, hip discomfort 5 on scale 0/10, pt does have a fentanyl patch for chronic back pain on her r thigh, hr reg 78, ra 94%, enc freq use IS and pt demonstrated to 1500, jeremias dsg intact, green ok flashing, Korey HIGH in this am and said ok to dc the hemovac, suctions released and dc w/o difficulty, 2x2 w/op site over, after breakfast given 10mg po oxycodone and pt up with phys therapy, ambul w/fww into hallway, ret to bed, pt states hx of IBS and did have a firm bm this am.
--- NOTE | 2018-12-24 11:36 | CM.DPC ---
DCP Cont: Met with patient in her room to discuss plan. She wanted to make sure that she was inpatient status, since she is going back to [facility]. Did verify that she is inpatient status as of 11/21. Patient had been paying privately prior to this admit. She will have been here 3 days as of tomorrow, and Sowmya Matta. stated that discharge may happen tomorrow. Patient stated that she lives on [address], and does not have anyone to help her at home. She stated that she does have a brother, but his home is not set up to help her. P: DCP to continue to follow. Should be able to return to [facility] when stable, could happen tomorrow. Called and confirmed with Lourdes at [facility] that they are expecting her. Whitney Yuan RN/Director On Air
--- NOTE | 2018-12-24 11:42 | PT.IPTN ---
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, initial encounter (12/22/18) Surgery Performed Operation Date: 12/22/18 07:45 Actual Procedures p Total Hip Arthroplasty Revision, poly liner and head replacement(Left) - Gerri Sandoval MD Physical Therapy Treatment Note M2 PT-IP Current Condition Start: 12/22/18 14:58 Freq: NEEDED Status: Active Protocol: Document 12/22/18 14:45 (Rec: 12/22/18 15:41 [id number]) Physical Therapy Current Condition Current Condition Evaluation Date 12/22/18 Treatment Diagnosis Revision L KRUNAL, difficulty in walking Onset Date 12/22/18 Precautions Posterior Hip Precautions No Hip Flexion > 90 degrees No Hip Internal Rotation No Hip Adduction Other Precautions and no hip hyperextension and ER pass 20 degrees. Weight Bearing Status Weight Bearing Status Weight Bear as Tolerated M3 PT-IP Subjective Start: 12/22/18 14:58 Freq: NEEDED Status: Active Protocol: Document 12/24/18 10:35 GGD (Rec: 12/24/18 11:41 GGD [email or web address]) Subjective Physical Therapy Visit Type Type Treatment Note Visit Start Time 10:05 Visit Stop Time 10:35 Total Visit Minutes 30 Number of PEDIATRIC CARE COORDINATOR Visits 3 Physical Therapy Visit Comments Patient Comments Pt states she would like to walk. Therapy Pain Assessment Pain When Pain Assessed During Mobility Pain Present Pain Present Pain Reported M4 PT-IP Mobility and Gait Start: 12/22/18 14:58 Freq: NEEDED Status: Active Protocol: Document 12/24/18 10:35 GGD (Rec: 12/24/18 11:41 GGD [email or web address]) PT-Bed Mobility Assessment Supine to Sit Supine to Sit Standby Assistance Sit to Supine Sit to Supine Standby Assistance Scooting Scooting to Edge of Bed Independent Scooting Up and Down in Bed Independent PT-Transfer Assessment Sit to and From Stand Sit to and from Stand Standby Assistance 1 Person Assistance Use of Upper Extremities Equipment Transfer Assistive Device Gait Belt Front Wheeled Walker Orthotic/Prosthetic Devices or Brace: No Transfers Transfer Destination Bed Transfer Ability Level of Assist Standby Assistance Gait Assessment Gait Gait Assistance Required: Standby Assistance Distance (Feet) 200 Assistive Devices Assistive Device Gait Belt Front Wheeled Walker Gait Deviations General Gait Pattern Antalgic Decreased Stride Length Decreased Feet Clearance Narrow Based Gait Factors Limiting Gait Function Factors Limiting Gait Function Decreased Activity Tolerance Decreased Sensation Decreased Strength Pain Poor Balance Comments Gait Comments min cues for gait pattern M5 PT-IP Objective Assessments Start: 12/22/18 14:58 Freq: NEEDED Status: Active Protocol: Document 12/22/18 14:45 HH (Rec: 12/22/18 15:41 [email or web address]) Orientation Orientation/Cognition Level of Alertness Alert Orientation Name Age Birthday Month Date Year Day of Week Place Situation Language Function Ability No Deficits Noted Safety Awareness Understands Safety Issues Memory Description No Deficits Noted Gross Range of Motion Upper Extremity ROM Assessment Within Functional Limits Lower Extremity ROM Assessment Left Impaired Strength Upper Extremity Strength Assessment Within Functional Limits Lower Extremity Strength Assessment Left Impaired Comments Strength Comments 3/5 for L hip strength grossly Coordination Assessment Gross Coordination Gross Coordination WNL Sensation Assessment Sensation Gross Sensation Left LE Impaired Light Touch Impaired Proprioception (Position) Impaired Sensation Description Numbness Comments Sensation Comments at left upper thigh Muscle Tone Muscle Tone WNL Yes M6 PT-IP Treatment Start: 12/22/18 14:58 Freq: NEEDED Status: Active Protocol: Document 12/24/18 10:35 GGD (Rec: 12/24/18 11:41 GGD [email or web address]) Physical Therapy Treatment Exercises Exercises Ankle Pumps Gluteal Sets Quad Sets Heel Slides Education Education Provided Precautions M7 PT-IP Assessment and Plan Start: 12/22/18 14:58 Freq: NEEDED Status: Active Protocol: Document 12/24/18 10:35 GGD (Rec: 12/24/18 11:41 GGD [email or web address]) PT Summary Assessment and Plan Summary Assessment Summary Pt improivng with mobility. She did need review of hip precations during mobility. She has good understanding of post op hip exercise. Frequency of Treatment Frequency Of Treatment Twice a Day Treatment Plan Physical Therapy Treatment Plan Bed Mobility Training Transfer Training Gait Training Therapeutic Exercise Balance Retraining Post Op Education Discharge Planning Hot or Cold Pack Neuromuscular Re-ed Other Recommendations and Next Treatment review precautions Focus gait training as blanka stair climbing as blanka Recommendations To Nursing Amount of Assist Needed 1 Person Assist Discharge Recommendations PT Discharge Recommendations SNF Rehab
--- NOTE | 2018-12-24 13:52 | PT.IPTN ---
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, initial encounter (12/22/18) Surgery Performed Operation Date: 12/22/18 07:45 Actual Procedures p Total Hip Arthroplasty Revision, poly liner and head replacement(Left) - Gerri Sandoval MD Physical Therapy Treatment Note M2 PT-IP Current Condition Start: 12/22/18 14:58 Freq: NEEDED Status: Active Protocol: Document 12/22/18 14:45 HH (Rec: 12/22/18 15:41 HH [id number]) Physical Therapy Current Condition Current Condition Evaluation Date 12/22/18 Treatment Diagnosis Revision L KRUNAL, difficulty in walking Onset Date 12/22/18 Precautions Posterior Hip Precautions No Hip Flexion > 90 degrees No Hip Internal Rotation No Hip Adduction Other Precautions and no hip hyperextension and ER pass 20 degrees. Weight Bearing Status Weight Bearing Status Weight Bear as Tolerated M3 PT-IP Subjective Start: 12/22/18 14:58 Freq: NEEDED Status: Active Protocol: Document 12/24/18 13:47 GGD (Rec: 12/24/18 13:52 GGD [email or web address]) Subjective Physical Therapy Visit Type Type Treatment Note Visit Start Time 13:20 Visit Stop Time 13:45 Total Visit Minutes 25 Number of REVENUE DIRECTOR Visits 4 Physical Therapy Visit Comments Patient Comments Pt ready to work with therapy. Therapy Pain Assessment Pain When Pain Assessed At Rest Pain Present Pain Present Pain Reported Location Left Hip Intensity 3 Scale Used Numeric (1 - 10) M4 PT-IP Mobility and Gait Start: 12/22/18 14:58 Freq: NEEDED Status: Active Protocol: Document 12/24/18 13:47 GGD (Rec: 12/24/18 13:52 GGD [email or web address]) PT-Bed Mobility Assessment Supine to Sit Supine to Sit Standby Assistance Sit to Supine Sit to Supine Standby Assistance Scooting Scooting to Edge of Bed Independent Scooting Up and Down in Bed Independent PT-Transfer Assessment Sit to and From Stand Sit to and from Stand Standby Assistance 1 Person Assistance Use of Upper Extremities Equipment Transfer Assistive Device Gait Belt Front Wheeled Walker Orthotic/Prosthetic Devices or Brace: No Transfers Transfer Destination Bed Transfer Ability Level of Assist Standby Assistance Gait Assessment Gait Gait Assistance Required: Standby Assistance Distance (Feet) 300 Assistive Devices Assistive Device Gait Belt Front Wheeled Walker Gait Deviations General Gait Pattern Antalgic Decreased Stride Length Decreased Feet Clearance Narrow Based Gait Factors Limiting Gait Function Factors Limiting Gait Function Decreased Activity Tolerance Decreased Sensation Decreased Strength Pain Poor Balance M5 PT-IP Objective Assessments Start: 12/22/18 14:58 Freq: NEEDED Status: Active Protocol: Document 12/22/18 14:45 HH (Rec: 12/22/18 15:41 [email or web address]) Orientation Orientation/Cognition Level of Alertness Alert Orientation Name Age Birthday Month Date Year Day of Week Place Situation Language Function Ability No Deficits Noted Safety Awareness Understands Safety Issues Memory Description No Deficits Noted Gross Range of Motion Upper Extremity ROM Assessment Within Functional Limits Lower Extremity ROM Assessment Left Impaired Strength Upper Extremity Strength Assessment Within Functional Limits Lower Extremity Strength Assessment Left Impaired Comments Strength Comments 3/5 for L hip strength grossly Coordination Assessment Gross Coordination Gross Coordination WNL Sensation Assessment Sensation Gross Sensation Left LE Impaired Light Touch Impaired Proprioception (Position) Impaired Sensation Description Numbness Comments Sensation Comments at left upper thigh Muscle Tone Muscle Tone WNL Yes M6 PT-IP Treatment Start: 12/22/18 14:58 Freq: NEEDED Status: Active Protocol: Document 12/24/18 13:47 GGD (Rec: 12/24/18 13:52 GGD [email or web address]) Physical Therapy Treatment Exercises Exercises Ankle Pumps Gluteal Sets Quad Sets Heel Slides Education Education Provided Precautions M7 PT-IP Assessment and Plan Start: 12/22/18 14:58 Freq: NEEDED Status: Active Protocol: Document 12/24/18 13:47 GGD (Rec: 12/24/18 13:52 GGD [email or web address]) PT Summary Assessment and Plan Summary Assessment Summary Pt improving with mobility. She was able to progress gait distance. She was stable with balance. She improved with following hip precautions during mobility. Frequency of Treatment Frequency Of Treatment Twice a Day Treatment Plan Physical Therapy Treatment Plan Bed Mobility Training Transfer Training Gait Training Therapeutic Exercise Balance Retraining Post Op Education Discharge Planning Hot or Cold Pack Neuromuscular Re-ed Other Recommendations and Next Treatment review precautions Focus gait training as blanka stair climbing as blanka Recommendations To Nursing Amount of Assist Needed 1 Person Assist Discharge Recommendations PT Discharge Recommendations SNF Rehab
[2018-12-24] MEDS: LIOTHYRONINE 5 MCG TABLET 10 MCG PO (17:08)
[2018-12-24] MEDS: QUETIAPINE 25 MG TABLET PO (21:41)
[2018-12-25] VITALS (7 sets, daily range): BP systolic 82–125; BP diastolic 53–70; PULSE 64–94; RESP 16–18; TEMP 36.6–37.1; O2SAT 91–94
[2018-12-25] MEDS: OXYCODONE IR 5 MG TABLET PO ×2 (02:18→06:49)
--- NOTE | 2018-12-25 04:26 | PC.NURSE ---
Patient hypotensive this shift. Patient is heplocked. Notified MD of VS. Told patient to increase po fluid intake. Patient has water at bedside, and is drinking. Percolone given for pain so far this shift. No s/s of hypotension noted. Patient remains alert and oriented.
[2018-12-25] MEDS: IBUPROFEN 600 MG TABLET PO (04:43)
[2018-12-25] MEDS: hydrOXYzine pamoate 25 MG CAPSULE PO (04:43)
[2018-12-25] MEDS: LITHIUM 150 MG IR CAPSULE PO (08:37)
[2018-12-25] MEDS: LIOTHYRONINE 25 MCG TABLET PO (08:37)
[2018-12-25] MEDS: ACETAMINOPHEN 325 MG TABLET 975 MG PO ×2 (08:38→14:27)
[2018-12-25] MEDS: DULOXETINE 30 MG CAPSULE 120 MG PO (08:38)
[2018-12-25] MEDS: ASPIRIN EC 81 MG TABLET PO (08:40)
[2018-12-25] MEDS: DOCUSATE 100 MG CAPSULE PO (08:40)
[2018-12-25] MEDS: LEVOTHYROXINE 25 MCG TABLET 12.5 MCG PO (08:41)
--- NOTE | 2018-12-25 08:50 | PC.NURSE ---
Addendum entered by Mindy Yuan R.N. 12/25/18 11:30: VALUABLES - pt reviewed and counted out the $2770. Original Note: Addendum entered by Mindy Yuan R.N. 12/25/18 10:52: MS - after shower, given 10mg oxycodone for phys therapy, ambul w/fww, gait steady, pt wallet and anne returned from safe. Original Note: AM NOTE - Awake, states while in bed, pain 3 on scale 0/10, was a little worse overnight and discussed medications and dosages for this am, no nausea, blanka gen diet, hx ibs, did have bm yesterday, ra 92%, enc use IS this am, jeremias dsg intact w/green OK flashing.
--- NOTE | 2018-12-25 08:55 | PM.DS.1 ---
History of Present Illness Date Patient Seen: 12/25/18 Time Patient Seen: 09:01 Chief complaint: 22684 L HIP TOTAL ARTHROPLASTY Narrative: Hospital day 4, postop day 3 following left revision total hip arthroplasty. Patient remained stable. Progressing slowly with PT. Knee further assist for rehab. Patient scheduled go to [facility] today. Discharge Providers Date of admission: 12/22/18 06:36 Primary care physician: Jose F Ortiz MD Consults: 12/22/18 11:37 Consult to Discharge Planning Routine Comment: ecf Consult to Physical Therapy Evaluate & Treat Comment: routine posterior precautions, avoid er > 20, hype Physician Instructions: post op KRUNAL protocol Consult to Respiratory Therapy Evaluate & Treat Comment: Physician Instructions: Evaluate and treat Discharge provider: Omid Gaming PA-C Discharge Date: 12/25/18 Summary Discharge Diagnosis: Status post left revision total hip arthroplasty of polyethylene and femoral head Hospital Course: Patient brought to hospital on 12/22/2018 for above noted surgery. She remained stable postoperatively. Progressed slowly with PT. Needing further therapy before going home. Discharged to [facility] on postop day 3. Status at Discharge Cognitive/behavioral status at discharge: Alert oriented no acute distress. Functional status at discharge: uses cane/walker Overall status at discharge: patient is progressing back to baseline Time Spent with Patient Less than 30 minutes Exam Vital Signs (past 8 hours): - 12/25/18 01:45 12/25/18 01:46 12/25/18 04:31 Temperature 97.9 F Pulse Rate 67 67 75 Respiratory Rate 18 Blood Pressure 82/53 L 82/54 L 125/70 Pulse Oximetry 93 12/25/18 07:30 Temperature 97.9 F Pulse Rate 94 H Respiratory Rate 16 Blood Pressure 109/54 L Pulse Oximetry 94 Oxygen Delivery Method Room Air Oxygen Flow Rate 0 Narrative Exam Narrative: Legs. Jeremias dressing to left hip incision is sealed and dry without drainage or inflammation. No calf pain or swelling. Pulses symmetrical. Objective Labs Result Diagrams: 12/23/18 05:19 Discharge Plan Discharge Plan Patient Disposition: SNF Transfer to: [facility] Under care of provider: Of facility MD or PCP Transportation: Facility vehicle I certify the postop hospital half-way care is medically necessary on a continuing basis for any conditions for which he/ she received care during this hospitalization.: Yes The receiving facility has agreed to accept transfer and provide medical treatment.: Yes Discharge Med Rec/Prescriptions Prescriptions: New aspirin 81 mg Tablet,Delayed Release (Dr/Ec) 81 mg PO BID Qty: 60 RF: 0 fentanyl 100 mcg/hr Patch 72 Hour 100 mcg topical Q48H Qty: 5 RF: 0 oxycodone 5 mg Tablet 5 mg PO Q3HR PRN (Reason: Pain, Moderate (4-6)) Qty: 30 RF: 0 Continued liothyronine 25 mcg tablet 25 mcg PO DAILY RF: 0 levothyroxine 25 mcg tablet 12.5 mcg PO DAILY RF: 0 fentanyl 100 mcg/hr patch 72 hour 100 mcg Topical Q48H RF: 0 hydroxyzine pamoate 25 mg Capsule 25 mg PO Q6H PRN (Reason: muscle spasm) Qty: 30 RF: 0 aripiprazole 2 mg tablet 2 mg PO DAILY RF: 0 acetaminophen 325 mg Tablet 650 mg PO Q4H PRN (Reason: Headache) Qty: 30 RF: 0 oxycodone 5 mg Tablet 5 mg PO Q3HR PRN (Reason: Pain, Moderate (4-6)) Qty: 30 RF: 0 quetiapine 25 mg Tablet 1 - 2 tab PO BEDTIME RF: 0 alprazolam 1 mg Tablet 0.5 mg PO Q6H PRN (Reason: Anxiety) RF: 0 lithium carbonate 150 mg Capsule 150 mg PO DAILY RF: 0 duloxetine [Cymbalta] 60 mg Capsule,Delayed Release(Dr/Ec) 60 mg PO Q OTHER DAY RF: 0 duloxetine [Cymbalta] 60 mg Capsule,Delayed Release(Dr/Ec) 120 mg Q OTHER DAY RF: 0 liothyronine 5 mcg tablet 10 mcg PO QPM RF: 0 Follow up/Referrals: Jose F Ortiz MD [Primary Care Provider] - Discharge Health Status Brief summary of current health status: Patient had left revision total hip arthroplasty done on 12/22/2018. She remained stable postoperatively. Posterior total hip precautions x6 weeks postop. Patient needs further rehab before going home. Provider Discharge Instructions Diet: Diet as Tolerated Liquid consistency: Normal/Thin Food texture: Regular Activity: Total hip precautions x6 weeks postop. Ambulate as tolerated with walker as needed. Skin/Wound/Dressing Care Report to your healthcare provider any signs of infection, such as:: chills, fever, night sweats, increased pain, unusual drainage and unusual redness Dressing: Keep jeremias dressing in place until postop visit. Special Rehabilitation Services Reason for rehabilitation: Post-operative therapy Rehab type: Physical therapy and Occupational therapy Visit Report/Discharge Packet Instructions: DI for Hip Replacement Discharge Data Primary Care Provider: Jose F Ortiz Attending Provider: Gerri Sandoval Admit Date/Time: 12/22/18 06:36 Quality VTE Deep Vein Thrombosis/Pulmonary Embolism Present on Admission: No
--- NOTE | 2018-12-25 09:03 | P.DS_ITS ---
History of Present Illness Date Patient Seen: 12/25/18 Time Patient Seen: 09:01 Chief complaint: [id number] L HIP TOTAL ARTHROPLASTY Narrative: Hospital day 4, postop day 3 following left revision total hip arthroplasty. Patient remained stable. Progressing slowly with PT. Knee further assist for rehab. Patient scheduled go to [facility] today. Discharge Providers Date of admission: 12/22/18 06:36 Primary care physician: Jose F Ortiz MD Consults: 12/22/18 11:37 Consult to Discharge Planning Routine Comment: ecf Consult to Physical Therapy Evaluate & Treat Comment: routine posterior precautions, avoid er > 20, hype Physician Instructions: post op KRUNAL protocol Consult to Respiratory Therapy Evaluate & Treat Comment: Physician Instructions: Evaluate and treat Discharge provider: Omid Gaming PA-C Discharge Date: 12/25/18 Summary Discharge Diagnosis: Status post left revision total hip arthroplasty of polyethylene and femoral head Hospital Course: Patient brought to hospital on 12/22/2018 for above noted surgery. She remained stable postoperatively. Progressed slowly with PT. Needing further therapy before going home. Discharged to [facility] on postop day 3. Status at Discharge Cognitive/behavioral status at discharge: Alert oriented no acute distress. Functional status at discharge: uses cane/walker Overall status at discharge: patient is progressing back to baseline Time Spent with Patient Less than 30 minutes Exam Vital Signs (past 8 hours): - 12/25/18 01:45 12/25/18 01:46 12/25/18 04:31 Temperature 97.9 F Pulse Rate 67 67 75 Respiratory Rate 18 Blood Pressure 82/53 L 82/54 L 125/70 Pulse Oximetry 93 12/25/18 07:30 Temperature 97.9 F Pulse Rate 94 H Respiratory Rate 16 Blood Pressure 109/54 L Pulse Oximetry 94 Oxygen Delivery Method Room Air Oxygen Flow Rate 0 Narrative Exam Narrative: Legs. Jeremias dressing to left hip incision is sealed and dry without drainage or inflammation. No calf pain or swelling. Pulses symmetrical. Objective Labs Result Diagrams: 12/23/18 05:19 Discharge Plan Discharge Plan Patient Disposition: SNF Transfer to: [facility] Under care of provider: Of facility MD or PCP Transportation: Facility vehicle I certify the postop hospital detention care is medically necessary on a continuing basis for any conditions for which he/ she received care during this hospitalization.: Yes The receiving facility has agreed to accept transfer and provide medical treatment.: Yes Discharge Med Rec/Prescriptions Prescriptions: New aspirin 81 mg Tablet,Delayed Release (Dr/Ec) 81 mg PO BID Qty: 60 RF: 0 fentanyl 100 mcg/hr Patch 72 Hour 100 mcg topical Q48H Qty: 5 RF: 0 oxycodone 5 mg Tablet 5 mg PO Q3HR PRN (Reason: Pain, Moderate (4-6)) Qty: 30 RF: 0 Continued liothyronine 25 mcg tablet 25 mcg PO DAILY RF: 0 levothyroxine 25 mcg tablet 12.5 mcg PO DAILY RF: 0 fentanyl 100 mcg/hr patch 72 hour 100 mcg Topical Q48H RF: 0 hydroxyzine pamoate 25 mg Capsule 25 mg PO Q6H PRN (Reason: muscle spasm) Qty: 30 RF: 0 aripiprazole 2 mg tablet 2 mg PO DAILY RF: 0 acetaminophen 325 mg Tablet 650 mg PO Q4H PRN (Reason: Headache) Qty: 30 RF: 0 oxycodone 5 mg Tablet 5 mg PO Q3HR PRN (Reason: Pain, Moderate (4-6)) Qty: 30 RF: 0 quetiapine 25 mg Tablet 1 - 2 tab PO BEDTIME RF: 0 alprazolam 1 mg Tablet 0.5 mg PO Q6H PRN (Reason: Anxiety) RF: 0 lithium carbonate 150 mg Capsule 150 mg PO DAILY RF: 0 duloxetine [Cymbalta] 60 mg Capsule,Delayed Release(Dr/Ec) 60 mg PO Q OTHER DAY RF: 0 duloxetine [Cymbalta] 60 mg Capsule,Delayed Release(Dr/Ec) 120 mg Q OTHER DAY RF: 0 liothyronine 5 mcg tablet 10 mcg PO QPM RF: 0 Follow up/Referrals: Jose F Ortiz MD [Primary Care Provider] - Discharge Health Status Brief summary of current health status: Patient had left revision total hip arthroplasty done on 12/22/2018. She remained stable postoperatively. Felt [employer] ior total hip precautions x6 weeks postop. Patient needs further rehab before going home. Provider Discharge Instructions Diet: Diet as Tolerated Liquid consistency: Normal/Thin Food texture: Regular Activity: Total hip precautions x6 weeks postop. Ambulate as tolerated with walker as needed. Skin/Wound/Dressing Care Report to your healthcare provider any signs of infection, such as:: chills, fever, night sweats, increased pain, unusual drainage and unusual redness Dressing: Keep jeremias dressing in place until postop visit. Special Rehabilitation Services Reason for rehabilitation: Post-operative therapy Rehab type: Physical therapy and Occupational therapy Visit Report/Discharge Packet Instructions: DI for Hip Replacement Discharge Data Primary Care Provider: Joes F Ortiz Attending Provider: Gerri Sandoval Admit Date/Time: 12/22/18 06:36 Quality VTE Deep Vein Thrombosis/Pulmonary Embolism Present on Admission: No
[2018-12-25] MEDS: OXYCODONE IR 10 MG TABLET PO ×2 (10:13→14:27)
--- NOTE | 2018-12-25 10:30 | PT.IPTN ---
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, initial encounter (12/22/18) Surgery Performed Operation Date: 12/22/18 07:45 Actual Procedures p Total Hip Arthroplasty Revision, poly liner and head replacement(Left) - Gerri Sandoval MD Physical Therapy Treatment Note M2 PT-IP Current Condition Start: 12/22/18 14:58 Freq: NEEDED Status: Active Protocol: Document 12/22/18 14:45 HH (Rec: 12/22/18 15:41 [id number]) Physical Therapy Current Condition Current Condition Evaluation Date 12/22/18 Treatment Diagnosis Revision L KRUNAL, difficulty in walking Onset Date 12/22/18 Precautions Posterior Hip Precautions No Hip Flexion > 90 degrees No Hip Internal Rotation No Hip Adduction Other Precautions and no hip hyperextension and ER pass 20 degrees. Weight Bearing Status Weight Bearing Status Weight Bear as Tolerated M3 PT-IP Subjective Start: 12/22/18 14:58 Freq: NEEDED Status: Active Protocol: Document 12/25/18 10:30 GGD (Rec: 12/25/18 11:24 GGD [id number]) Subjective Physical Therapy Visit Type Type Treatment Note Visit Start Time 10:05 Visit Stop Time 10:30 Total Visit Minutes 25 Number of STAFFING RN Visits 5 Physical Therapy Visit Comments Patient Comments Pt feeling better. Therapy Pain Assessment Pain When Pain Assessed At Rest Pain Present Pain Present Pain Reported Location Left Hip Intensity 3 Scale Used Numeric (1 - 10) M4 PT-IP Mobility and Gait Start: 12/22/18 14:58 Freq: NEEDED Status: Active Protocol: Document 12/25/18 10:30 GGD (Rec: 12/25/18 11:24 GGD [id number]) PT-Bed Mobility Assessment Supine to Sit Supine to Sit Standby Assistance Sit to Supine Sit to Supine Standby Assistance Scooting Scooting to Edge of Bed Independent Scooting Up and Down in Bed Independent PT-Transfer Assessment Sit to and From Stand Sit to and from Stand Standby Assistance 1 Person Assistance Use of Upper Extremities Equipment Transfer Assistive Device Gait Belt Front Wheeled Walker Orthotic/Prosthetic Devices or Brace: No Transfers Transfer Destination Bed Transfer Ability Level of Assist Standby Assistance Gait Assessment Gait Gait Assistance Required: Standby Assistance Distance (Feet) 350 Assistive Devices Assistive Device Gait Belt Front Wheeled Walker Gait Deviations General Gait Pattern Antalgic Decreased Stride Length Decreased Feet Clearance Narrow Based Gait Factors Limiting Gait Function Factors Limiting Gait Function Decreased Activity Tolerance Decreased Sensation Decreased Strength Pain Poor Balance Stair Climbing Assessment Evaluation Level of Assist On Stairs Contact Guard Assistance Devices Stair Climbing Assistive Devices Left Railing Right Railing Technique/Endurance Stair Climbing Direction Ascend and Descend Stair Climbing Technique Step to Step Number of Steps Climbed 3 Query Text: Stair Climbing Set # Repetitions (reps) 1 M5 PT-IP Objective Assessments Start: 12/22/18 14:58 Freq: NEEDED Status: Active Protocol: Document 12/22/18 14:45 (Rec: 12/22/18 15:41 [id number]) Orientation Orientation/Cognition Level of Alertness Alert Orientation Name Age Birthday Month Date Year Day of Week Place Situation Language Function Ability No Deficits Noted Safety Awareness Understands Safety Issues Memory Description No Deficits Noted Gross Range of Motion Upper Extremity ROM Assessment Within Functional Limits Lower Extremity ROM Assessment Left Impaired Strength Upper Extremity Strength Assessment Within Functional Limits Lower Extremity Strength Assessment Left Impaired Comments Strength Comments 3/5 for L hip strength grossly Coordination Assessment Gross Coordination Gross Coordination WNL Sensation Assessment Sensation Gross Sensation Left LE Impaired Light Touch Impaired Proprioception (Position) Impaired Sensation Description Numbness Comments Sensation Comments at left upper thigh Muscle Tone Muscle Tone WNL Yes M6 PT-IP Treatment Start: 12/22/18 14:58 Freq: NEEDED Status: Active Protocol: Document 12/25/18 10:30 GGD (Rec: 12/25/18 11:24 GGD [id number]) Physical Therapy Treatment Exercises Exercises Ankle Pumps Gluteal Sets Quad Sets Heel Slides Education Education Provided Precautions M7 PT-IP Assessment and Plan Start: 12/22/18 14:58 Freq: NEEDED Status: Active Protocol: Document 12/25/18 10:30 GGD (Rec: 12/25/18 11:24 GGD [id number]) PT Summary Assessment and Plan Summary Assessment Summary Pt improving. She improving with stability with gait. She was safe with stairs with B rails. She needing less cues for hip precautions. Frequency of Treatment Frequency Of Treatment Twice a Day Treatment Plan Other Recommendations and Next Treatment review precautions Focus gait training as blanka stair climbing as blanka Recommendations To Nursing Amount of Assist Needed 1 Person Assist Discharge Recommendations PT Discharge Recommendations SNF Rehab
--- NOTE | 2018-12-25 10:51 | CM.DPC ---
DCP Cont: Patient is to be discharged back to [facility] today. She will be under Medicare benefit, for she has been inpatient for [address] Zaragoza was discharging her, but no signed meds or discharge summary. Was able to reach out to Omid Gaming, who was able to print out med list, and sign, along with prescriptions. Was able to fax over to [facility]. Updated nurseMindy. Called [place] at admissions at [facility]. She stated that she would call back with time. [place] back from [place] in admissions at [facility]. 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 Updated Nurse, Mindy,and updated white board as well. Patient is aware. Whitney Yuan RN/Nuclear Auxiliary Operator
--- NOTE | 2018-12-25 11:32 | PC.NURSE ---
Addendum entered by Mindy Yuan R.N. 12/25/18 15:29: [facility] personnel arrived, pt has all belongings, packet with paperwork and scripts given to [facility], escorted to [place] via . Original Note: Addendum entered by Mindy Yuan R.N. 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 Original Note: AM NOTE - pt awakens easily, states her pain while in bed is 3 on scale 0/10, was a little worse overnight than yesterday, discussed medications, dosages and timing, no nausea, blanka gen diet, ra 92%, enc freq use IS, jeremias dsg intact w/green OK flashing, after shower given 10mg oxycodone prior to phys therapy, gait steady, when back bed, valuables from safe returned to pt and the anne $277.00 reviewed with pt and also verified her credit cards were returned.
== END 2018-12-25 15:20 | DRG 468 ==
PROVIDERS: Admitting Provider Orthopaedic Surgery; Family Provider Family Medicine; PCP Family Medicine; Visit Provider Orthopaedic Surgery
PROC: 0SRS01Z Replacement of Left Hip Joint, Femoral Surface with Metal Synthetic Substitute, Open Approach (ICD-10-PCS; principal; 2018-12-22 07:45)
DX: T84.061A Wear of articular bearing surface of internal prosthetic left hip joint, initial encounter (principal); T84.021A Dislocation of internal left hip prosthesis, initial encounter; Z96.643 Presence of artificial hip joint, bilateral; F32.9 Major depressive disorder, single episode, unspecified; E03.9 Hypothyroidism, unspecified; Z87.891 Personal history of nicotine dependence
CPT/HCPCS: 36415; 36591; 72170; 73502; 76000; 80053; 83036; 85014; 85018; 85025; 85651; 86140; 87070; 87075; 87205; 93005; 94762; 94770; 97110; 97116; 97161; 97162; 97530; 99285; C1776; G0378; C9290; J0690; J1100; J1170; J2250; J2274; J2405; J2704; J3010; J3370

== ENCOUNTER → 2021-04-17 11:56 | Outpatient (CLI) | payer MEDICARE, BC, SELFPAY ==
[2021-03-02 08:42] VITALS: BMI 19.2
[2021-04-17 20:18] LABS: Add Manual Diff / Slide Review NO; Basophils Absolute Auto 0 /uL (0-100); Basophils Percent Auto 0.3 % (0-2); Eosinophils Absolute Auto 0 /uL (0-450); Eosinophils Percent Auto 0.7 % (2-4); Hematocrit 46.9 % (36-46); Hemoglobin 15.3 g/dL (12.0-16.0); Lymphocytes Absolute Auto 1600 /uL (1100-4500); Lymphocytes Percent Auto 35.4 % (25-40); Mean Corpuscular HGB Conc 32.7 % (30-36); Mean Corpuscular Hemoglobin 29.5 PG (26-34); Mean Corpuscular Volume 90.3 fL (80-100); Monocytes Absolute Auto 200 /uL (0-900); Monocytes Percent Auto 4.7 % (3-14); Neutrophils Absolute Auto 2700 /uL (1500-7000); Neutrophils Percent Auto 58.9 % (50-75); Platelet Count 190 X10^3/uL (150-400); Red Blood Cell Count 5.19 X10^6/uL (4.0-5.2); White Blood Cell Count 4.6 X10^3/uL (4.5-11.0)
[2021-04-17 20:24] LABS: Alanine Aminotransferase 21 IU/L (<35); Albumin 4.5 g/dL (3.5-5.0); Albumin Globulin Ratio 1.8 (1.0-2.8); Alkaline Phosphatase 105 U/L (38-126); Aspartate Aminotransferase 33 IU/L (14-36); BUN Creatinine Ratio 18.8 (6-22); Blood Urea Nitrogen 16 mg/dL (7-17); Calcium 9.9 mg/dL (8.4-10.2); Carbon Dioxide 27 mmol/L (22-32); Chloride 104 mmol/L (98-107); Estimated Glomerular Filt Rate > 60.0 mL/min (>60); Globulin 2.5 g/dL (1.7-4.1); Glucose 138 mg/dL (80-110); HEMOLYSIS < 15 (0-50); Lipase 274 U/L (23-300); Potassium 3.6 mmol/L (3.4-5.1); Sodium 141 mmol/L (137-145)
[2021-04-17 20:28] LABS: Free T3, Triiodothyronine Free 4.01 pg/mL (2.77-5.27); Free T4, Direct Thyroxine 0.39 ng/dL (0.78-2.19)
[2021-04-17 20:29] LABS: Vitamin D 25 Hydroxy (D3) 43.6 ng/mL (30.0-100.0)
[2021-04-17 20:41] LABS: Thyroid Stimulating Hormone 1.63 uIU/mL (0.47-4.68)
== END ==
PROVIDERS: Family Provider Family Medicine; PCP Family Medicine; Visit Provider Family Medicine
DX: F32.9 Major depressive disorder, single episode, unspecified (principal); M54.5 Low back pain; Z79.891 Long term (current) use of opiate analgesic; F41.9 Anxiety disorder, unspecified; G89.29 Other chronic pain; M81.0 Age-related osteoporosis without current pathological fracture
CPT/HCPCS: 80053; 82306; 83690; 84439; 84443; 84481; 85025